=== PATIENT | female | born 1995 | race Hispanic/Latino ===

== ENCOUNTER 2021-08-03 22:09 | Emergency (ER) | payer SELFPAY ==
--- OUTSIDE RECORDS SUMMARY | 2021-08-03 22:12 | XMS REPORT | Continuity of Care Document ---
:1995 Author Organization [facility] t Address [facility] access [facility]3 Mehrdad Vásquez [address] [place] [address] Care Team Providers Name Role Phone Josefa Birch Primary Care Physician Josefa Birch Attending Clinician Brooke Madrid Attending Clinician Unavailable Brooke Madrid Admitting Clinician Unavailable Payers Payer Name Policy Type Policy Number Effective Date Expiration Date S ource Problems Condition Condition Condition Status Onset Resolution Last Treating Co mments Source Name Details Category Date Date Treatment Clinician Date Class 1 Class 1 Disease Active Univers obesity obesity 3-15 ity of due to due to 00:00: [place] excess excess 00 Medical calories calories Branch with body with body mass index mass index (BMI) of (BMI) of 31.0 to 31.0 to 31.9 in 31.9 in adult, adult, unspecifie unspecifie d whether d whether serious serious comorbidit comorbidit y present y present Well woman Well woman Disease Active U nivers exam exam 2-26 ity of 00:00: [address] Maternal Maternal Disease Active Unive rs varicella, varicella, 2-01 it y [place] non[place]immune [place] [address] [place] [address] Branch BMI BMI Disease Active Univers 31.0-31.9, 31.0-31.9, 1-30 it y of adult adult 00:00: [address] Branch COVID-19 COVID-19 Disease Active Unive rs virus IgG virus IgG - ity of antibody antibody 00:00: [place] detected detected 00 Medica l Branch Allergies, Adverse Reactions, Alerts This patient has no known allergies or adverse reactions. Social History Social Habit Start Date Stop Date Quantity Comments Source Exposure to Not sure [facility] SARS-CoV-2 [facility] (event) Branch Alcohol intake 2021-05-30 2021-05-30 Ex-drinker [facility] 00:00:00 00:00:00 (finding) [facility] Tobacco use and 2019-11-24 2019-11-24 Never used Universit y of exposure 00:00:00 00:00:00 [facility] Sex Ass[birth year] Universit y of 00:00:00 00:00:00 [facility] Smoking Status Start Date Stop Date Source Never smoker [facility] Medications Ordered Filled Start Stop Current Ordering Indication Dosage Frequency Signature Comments Components Source Medication Medication Date Date Medication? Clinician (SIG) Name Name levonorgest 2020-06 Yes [id number] 1{tbl} Take 1 Univers rel-ethinyl 2-27 tablet by ity of estradiol 00:00: mouth [place] 0.1-20 00 daily. Medical mg-mcg per Branch tablet levonorgest 2020-06 Yes [id number] 1{tbl} Take 1 Univers rel-ethinyl 2-27 tablet by ity of estradiol 00:00: mouth [place] 0.1-20 00 daily. Medical mg-mcg per Branch tablet Immunizations Ordered Filled Immunization Date Status Comments Sour e Immunization Name Name TDAP 2020-04-21 Completed [facility] 00:00:00 [facility] TDAP 2020-04-21 Completed [facility] 00:00:00 [facility] Influenza Virus 2020-02-17 Completed Universit y of Vaccine Quad .5 mL 00:00:00 [facility] IM 6+ [place] Branch Influenza Virus 2020-02-17 Completed Universit y of Vaccine [place] .5 mL 00:00:00 [facility] IM 6+ [place] Vital Signs Vital Name Observation Time Observation Value Comments Source Systolic blood 2021-05-30 15:41:00 113 mm[Hg] Univer sity of pressure [facility] Diastolic blood 2021-05-30 15:41:00 66 mm[Hg] Unive rsity of pressure [facility] Heart rate 2021-05-30 15:41:00 61 /min [facility] Body temperature 2021-05-30 15:41:00 37 Bernice [facility] Respiratory rate 2021-05-30 15:41:00 16 /min [facility] Body height 2021-05-30 15:41:00 175.3 cm [facility] Body weight 2021-05-30 15:41:00 94.983 kg [facility] BMI 2021-05-30 15:41:00 30.92 kg/m2 [facility] Procedures Procedure Date / Time Performed Performing Clinician Sourc e POCT TEST 2021-05-30 15:43:00 Sandra [facility] Encounters Start End Encounter Admission Attending Care Care Encounter Source Date/Time Date/Time Type Type Clinicians Facility Department ID 2021-05-30 2021-05-30 Office KEYLA Ladd [id number] [facility] 09:00:00 10:02:09 Visit Sandra 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 [id number] it y of REGIONAL [id number] Wei as MATERNAL [id number] Med ical & CHILD [address] [place] [address] Results Test Description Test Time Test Comments Results Result Comments Source POCT TEST 2021-05-30 15:43:00 Test Item Value Reference Range Interpretation Comme nts POCT PREG (test code = 1605) Negative On board controls acceptable with C Line (test code = 3574) Yes POCT PREG LOT # (test code = 3575) POCT PREG TEST DATE (test code = 3576) [id number] 15:43:00 Test Item Value Reference Range Interpretation Comments POCT PREG (test code = 1605) Negative On board controls acceptable with C Yes Line (test code = 3574) POCT PREG LOT # (test code = 3575) POCT PREG TEST DATE (test code = 3576) [facility]00 Test Item Value Reference Range Interpretation Comments Immunology (test code = RPR) NONREACTIVE NONREACTIVE N Chemistry - [id number] 06:38:00 Test Item Value Reference Range Interpretation Comments Chemistry - Specials (test Non-Reactive S/CO NonReactive N code = THBSAG) Blood Type Rh (Mom No Chg)2016-09-12 06:28:00 Test Item Value Reference Range Interpretation Comments Blood Type Rh OP N (test code = BT) Comment: (test See comment: N Maternal Type Rh code = TRHCMT) required for cord blood study. Due ann ack of a historical bloo d type, testing perform ed at replaced by [facility]. [id number] 06:08:00 Test Item Value Reference Range Interpretation Comments Hematology (test code = WBCT) 10.5 thou/uL 4.8-10.8 N Hematology (test code = RBCT) 4.00 mill/uL 4.00-5.20 N Hematology (test code = HGBT) 12.7 g/dL 12.0-16.0 N Hematology (test code = HCTT) 36.1 % 36.0-47.0 N Hematology (test code = MCV) 90.4 fl 77.0-87.0 H Hematology (test code = MCH) 31.7 pg 25.0-35.0 N Hematology (test code = MCHC) 35.0 g/dL 32.0-36.0 N Hematology (test code = RDW) 12.4 % 11.5-14.5 N Hematology (test code = PLTT) 259 thou/uL 130-400 N Hematology (test code = MPV) 7.7 fL 7.4-10.4 N
[2021-08-03] MEDS ORDERED: IBUPROFEN 400 MG TAB ONE (22:56)
[2021-08-03 23:00] LABS: Absolute Lymphocytes (CBC) 0.6 K/uL (0.7-4.9); Hematocrit 38.2 % (36.0-45.0); Lymphocytes % 9.7 % (15.3-44.8); MPV 8.2 fL (7.6-11.3); RBC Red Blood Cell Count 4.27 M/uL (3.86-4.86)
[2021-08-03 23:01] LABS: Urine Blood Negative (Negative); Urine Glucose Negative (Negative); Urine Protein Negative (Negative); Urine Specific Gravity >=1.030 (1.005-1.030); Urine pH 5.5 (5.0-7.0)
[2021-08-03 23:03] LABS: Protime INR 1.19
[2021-08-03 23:12] LABS: ALT/SGPT 13 U/L (12-78); AST/SGOT 11 U/L (15-37); Albumin 3.7 g/dL (3.4-5.0); Alkaline Phosphatase 68 U/L (45-117); BUN Blood Urea Nitrogen 8 mg/dL (7-18); Bicarbonate 26 mmol/L (21-32); Bilirubin Total 0.3 mg/dL (0.2-1.0); Glucose Level 112 mg/dL (74-106); Magnesium 1.9 mg/dL (1.8-2.4); NT PRO-BNP 46 pg/mL (<125); Potassium 3.5 mmol/L (3.5-5.1); Protein, Total 7.5 g/dL (6.4-8.2); Sodium Level 135 mmol/L (136-145)
[2021-08-03 23:21] LABS: Bilirubin Direct < 0.1 mg/dL (0-0.2)
[2021-08-03 23:38] LABS: Barbiturates NEGATIVE (NEGATIVE); Benzodiazepines NEGATIVE (NEGATIVE); Cocaine NEGATIVE (NEGATIVE); METHAMPHETAM NEGATIVE (NEGATIVE); Methadone NEGATIVE (NEGATIVE); Opiates NEGATIVE (NEGATIVE); Phencyclidine NEGATIVE (NEGATIVE); THC Cannibis NEGATIVE (NEGATIVE)
[2021-08-04 00:11] LABS: SARS-COV-2 RT PCR NEGATIVE (NEGATIVE)
--- NOTE | 2021-08-04 00:47 | ER ---
Nurse's Notes [facility] Name: Penny Constantino Age: 25 yrs Sex: Female : 1995 Arrival Date: 08/03/2021 Time: 22:14 Bed 20 Private MD: Diagnosis: Influenza due to identified novel influenza A virus with other respiratory manifestations;Chest pain, unspecified Presentation: 08/03 22:23 Chief complaint: Patient states: started having chest pain yesterday, now today has sm5 been having a cough and fever. took tyenol and cough medicine at 3pm. Coronavirus screen: Vaccine status: Patient reports being unvaccinated. Ebola Screen: No symptoms or risks identified at this time. Initial Sepsis Screen: Does the patient meet any 2 criteria? No. Patient's initial sepsis screen is negative. Does the patient have a suspected source of infection? No. Patient's initial sepsis screen is negative. Risk Assessment: Do you want to hurt yourself or someone else? Patient reports no desire to harm self or others. Onset of symptoms was August 02, 2021. 22:23 Method Of Arrival: Ambulatory [facility] 22:23 Acuity: PIPPA 3 5 Triage Assessment: 22:25 General: Appears in no apparent distress. Behavior is cooperative. Pain: Complains of sm5 pain in chest. Neuro: No deficits noted. Level of Consciousness is awake, alert, obeys commands, Oriented to person, place, time, situation. Cardiovascular: Reports chest pain, Capillary refill < 3 seconds Patient's skin is warm and dry. Respiratory: Reports cough that is Airway is patent Trachea midline Respiratory effort is even, unlabored. 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 - Social history:: Smoking status: Patient denies any tobacco usage or history of. Screenin:25 Abuse screen: Denies threats or abuse. Denies injuries from another. Nutritional sm5 screening: No deficits noted. Tuberculosis screening: No symptoms or risk factors identified. Fall Risk None identified. Assessment: 23:03 General: Appears in no apparent distress. comfortable, Behavior is calm, cooperative. joe Pain: Denies pain. 23:06 Pain: Pain does not radiate. joe 23:06 Pain: Pain began 2-3 days ago. joe Vital Signs: 22:23 BP 122 / 70; Pulse 99; Resp 18; Temp 100.4(O); Pulse Ox 99% on R/A; Weight 90.72 kg; [facility] Height 5 ft. 8 in. (172.72 cm); 23:03 BP 134 / 94; Pulse 87; Resp 18; Temp 100.4; Pulse Ox 100% on R/A; Pain 0/10; joe 23:43 BP 110 / 68; Pulse 90; Resp 16; Temp 100.9; Pulse Ox 99% on R/A; Pain 0/10; joe 03/03 00:32 BP 115 / 67; Pulse 84; Resp 16; Temp 99.6; Pulse Ox 100% on R/A; Pain 0/10; joe 01:07 BP 118 / 60; Pulse 84; Resp 16; Temp 99.0; Pulse Ox 100% on R/A; Pain 0/10; joe 03/ 22:23 Body Mass Index 30.41 (90.72 kg, 172.72 cm) [facility] ED Course: 08/03 22:14 Patient arrived in ED. wm 22:18 Anali Ambriz, RN is Primary Nurse. joe 22:23 Marcio Smalls PA is PHCP. cp 22:23 Eddie Kim MD is Attending Physician. cp 22:24 Triage completed. [facility] 22:25 Arm band placed on right wrist. EKG completed in triage. Results shown to MD. [facility] 22:41 Basic Metabolic Panel Sent. joe 22:41 CBC with Automated Diff Sent. joe 22:41 COVID-19/FLU A+B (Document "Date of Onset" if Symptomatic) Sent. joe 22:41 Basic Metabolic Panel Sent. joe 22:41 CBC with Diff Sent. joe 22:42 Troponin HS Sent. joe 22:42 PT-INR Sent. joe 22:42 NT PRO-BNP Sent. joe 22:42 Magnesium Sent. joe 22:42 LFT's Sent. joe 22:51 COVID-19/FLU A+B (Document "Date of Onset" if Symptomatic) Sent. joe 22:51 CBC with Automated Diff Sent. joe 22:51 Basic Metabolic Panel Sent. joe 22:51 D-Dimer Sent. joe 22:52 XRAY Chest (1 view) Sent. joe 22:57 XRAY Chest (1 view) In Process Unspecified. EDMS 23:02 Urine Dipstick-Ancillary Sent. joe 23:02 UDS Sent. joe 23:03 Troponin HS Sent. joe 23:03 PT-INR Sent. joe 23:03 NT PRO-BNP Sent. joe 23:03 Magnesium Sent. joe 23:03 LFT's Sent. joe 23:04 Patient has correct armband on for positive identification. Placed in gown. Bed in low jeo position. Call light in reach. Side rails up X 1. environmental monitoring technician on. Pulse ox on. NIBP on. Lights dimmed. Warm blanket given. Verbal reassurance given. 23:05 No provider procedures requiring assistance completed. Inserted saline lock: 20 gauge joe in right antecubital area, using aseptic technique. Blood collected. 23:06 Patient maintains SpO2 saturation greater than 95% on room air. joe 03/ 01:08 intact, bleeding controlled, No redness/swelling at site. Pressure dressing applied. joe Administered Medications: 08/03 23:00 Drug: Ibuprofen 800 mg Route: PO; joe 23:41 Follow up: Response: No adverse reaction; Temperature is decreased joe 23:02 CANCELLED (Provider dc'dd): Acetaminophen 1000 mg PO once joe 08/04 00:50 Drug: Tamiflu (oseltamivir) 75 mg Route: PO; joe 00:56 Follow up: Response: No adverse reaction joe Outcome: 08/03 23:06 Condition: stable joe 08/04 00:46 Discharge ordered by . cp 01:08 Discharged to home ambulatory. joe 01:08 Discharge instructions given to patient, Instructed on discharge instructions, follow up and referral plans. medication usage, Demonstrated understanding of instructions, follow-up care, medications, Prescriptions given X 4. 01:09 Patient left the ED. joe Signatures: Dispatcher [employer] EDMS Marcio Smalsl PA PA cp Marsh, Wendy wm Mazur, Sarah, RN RN 5 Anali Ambriz RN RN joe Corrections: (The following items were deleted from the chart) 03 22:50 22:41 D-DIMER+COAG.LAB.BRZ drawn and sent. joe EDMS
--- NOTE | 2021-08-04 00:47 | EDPHYS ---
Physician Documentation [facility] Name: Penny Constantino Age: 25 yrs Sex: Female : 1995 Arrival Date: 08/03/2021 Time: 22:14 Bed 20 Private MD: ED Physician Eddie Kim HPI: 08/03 22:33 This 25 yrs old Female presents to ER via Ambulatory with complaints of Fever, cp Chest Tightness. 22:33 The patient reports fever, with an emergency department temperature of 100.4 degrees cp Fahrenheit. 22:33 Onset: The symptoms/episode began/occurred today. cp 22:33 Associated signs and symptoms: Pertinent positives: chest pain, cough, body aches. cp Severity of symptoms: in the emergency department the symptoms are unchanged despite home interventions. 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 - Social history:: Smoking status: Patient denies any tobacco usage or history of. ROS: 22:35 Constitutional: Positive for body aches, fever, Negative for poor PO intake. cp 22:35 Eyes: Negative for injury, pain, redness, and discharge. cp 22:35 ENT: Negative for drainage from ear(s), ear pain, sore throat, difficulty swallowing, difficulty handling secretions. 22:35 Cardiovascular: Positive for chest pain. 22:35 Respiratory: Positive for cough, with no reported sputum, shortness of breath. 22:35 Abdomen/GI: Negative for abdominal pain, vomiting, diarrhea, constipation. 22:35 Back: Negative for radiated pain. 22:35 : Negative for urinary symptoms. Exam: 22:30 ECG was reviewed by the Attending Physician. cp 22:45 Constitutional: The patient appears in no acute distress, alert, awake, cp non-diaphoretic, non-toxic, well developed, well nourished, uncomfortable. 22:45 Head/Face: Normocephalic, atraumatic. cp 22:45 Eyes: Periorbital structures: appear normal, Conjunctiva: normal, no exudate, no injection, Sclera: no appreciated abnormality, Lids and lashes: appear normal, bilaterally. 22:45 ENT: External ear(s): are unremarkable, Ear canal(s): are normal, TM's: dullness, bilaterally, Nose: is normal, Mouth: Lips: moist, Oral mucosa: moist, Posterior pharynx: Airway: normal, no evidence of obstruction, Tonsils: no enlargement, no exudate, erythema, that is mild, exudate, is not appreciated. 22:45 Neck: Lymph nodes: no appreciated lymphadenopathy. 22:45 Chest/axilla: Inspection: 22:45 Cardiovascular: Rate: tachycardic, Rhythm: regular, Edema: is not appreciated, JVD: is not appreciated. 22:45 Respiratory: the patient does not display signs of respiratory distress, Respirations: labored breathing, is not present, intercostal retractions, are absent, shallow respirations, that is mild, Breath sounds: decreased breath sounds, are not appreciated, stridor, is not appreciated, wheezing: is not appreciated. 22:45 Abdomen/GI: Inspection: abdomen appears normal, Palpation: abdomen is soft and non-tender, in all quadrants. 22:45 Neuro: Orientation: to person, place \\T\\ time. Mentation: is normal, Motor: moves all fours, strength is normal, Sensation: is normal. Vital Signs: 22:23 BP 122 / 70; Pulse 99; Resp 18; Temp 100.4(O); Pulse Ox 99% on R/A; Weight 90.72 kg; sm5 Height 5 ft. 8 in. (172.72 cm); 23:03 BP 134 / 94; Pulse 87; Resp 18; Temp 100.4; Pulse Ox 100% on R/A; Pain 0/10; joe 23:43 BP 110 / 68; Pulse 90; Resp 16; Temp 100.9; Pulse Ox 99% on R/A; Pain 0/10; joe 03/03 00:32 BP 115 / 67; Pulse 84; Resp 16; Temp 99.6; Pulse Ox 100% on R/A; Pain 0/10; joe 01:07 BP 118 / 60; Pulse 84; Resp 16; Temp 99.0; Pulse Ox 100% on R/A; Pain 0/10; joe 08/03 22:23 Body Mass Index 30.41 (90.72 kg, 172.72 cm) sm5 MDM: 08/03 22:25 Patient medically screened. cp 23:00 Differential diagnosis: viral Infection, bacterial infection, bronchitis, pneumonia. cp 08/04 00:45 Data reviewed: vital signs, nurses notes, lab test result(s), EKG, radiologic studies, cp plain films. 00:45 Test interpretation: by ED physician or midlevel provider: ECG, plain radiologic cp studies. Counseling: I had a detailed discussion with the patient and/or guardian regarding: the historical points, exam findings, and any diagnostic results supporting the discharge/admit diagnosis, lab results, radiology results, to return to the emergency department if symptoms worsen or persist or if there are any questions or concerns that arise at home. ED course: VSS. Patient appears non-toxic and no signs of respiratory distress. Will discharge to home for continued monitoring. 08/03 22:30 Order name: Basic Metabolic Panel cp 08/03 22:30 Order name: CBC with Diff cp 08/03 22:30 Order name: LFT's; Complete Time: 00:01 cp 08/04 00:01 Interpretation: Normal except: AST 11; GLOB 3.8; A/G 1.0. cp 08/03 22:30 Order name: Magnesium; Complete Time: 00:01 cp 08/03 22:30 Order name: NT PRO-BNP; Complete Time: 00:01 cp 08/03 22:30 Order name: PT-INR; Complete Time: 00:01 cp 08/04 00:02 Interpretation: Abnormal: PT 13.7. cp 08/03 22:30 Order name: Troponin HS; Complete Time: 00:01 cp 08/04 00:03 Interpretation: Reviewed. cp 08/03 22:30 Order name: UDS; Complete Time: 00:01 cp 08/03 22:30 Order name: COVID-19/FLU A+B (Document "Date of Onset" if Symptomatic); Complete Time: cp 00:41 08/03 22:31 Order name: Basic Metabolic Panel; Complete Time: 00:01 EDMS 08/04 00:01 Interpretation: Normal except: NA 135; GLUC 112; GFR 83. cp 08/03 22:31 Order name: CBC with Automated Diff; Complete Time: 00:01 EDMS 08/04 00:02 Interpretation: Normal except: CATE% 80.8; LYM% 9.7; LYMA 0.6. cp 08/03 22:49 Order name: D-Dimer; Complete Time: 00:01 EDMS 08/03 23:01 Order name: Urine Dipstick-Ancillary; Complete Time: 00:01 EDMS 08/04 00:02 Interpretation: Normal except: UKET 2+; UESTR Trace. cp 08/03 22:30 Order name: XRAY Chest (1 view) cp 08/03 22:30 Order name: EKG; Complete Time: 22:31 cp 08/03 22:30 Order name: Cardiac monitoring; Complete Time: 22:52 cp 08/03 22:30 Order name: EKG - Nurse/Tech; Complete Time: 22:42 cp 08/03 22:30 Order name: IV Saline Lock; Complete Time: 22:42 cp 08/03 22:30 Order name: Labs collected and sent; Complete Time: 22:42 cp 08/03 22:30 Order name: O2 Per Protocol; Complete Time: 22:42 cp 08/03 22:30 Order name: O2 Sat Monitoring; Complete Time: 22:42 cp 08/03 22:30 Order name: Urine Dipstick-Ancillary (obtain specimen); Complete Time: 23:02 cp 08/03 22:30 Order name: Urine Test (obtain specimen); Complete Time: 23:02 cp 08/03 23:04 Order name: Urine --Ancillary (enter results); Complete Time: 00:41 cs9 EC/02 22:30 Rate is 89 beats/min. Rhythm is regular. WV interval is normal. QRS interval is normal. cp QT interval is normal. T waves are Inverted in leads III, aVF. Interpreted by me. Reviewed by me. Administered Medications: 23:00 Drug: Ibuprofen 800 mg Route: PO; joe 23:41 Follow up: Response: No adverse reaction; Temperature is decreased joe 23:02 CANCELLED (Provider dc'dd): Acetaminophen 1000 mg PO once joe 08/04 00:50 Drug: Tamiflu (oseltamivir) 75 mg Route: PO; joe 00:56 Follow up: Response: No adverse reaction joe Disposition: 06:05 Co-signature as Attending Physician, Eddie Kim MD I agree with the assessment and rn plan of care. Attestation: The patient's history, exam findings, diagnostics, and a summary of any interventions or procedures was reviewed in detail with Marcio UNDERWOOD. Disposition Summary: 08/04/21 00:46 Discharge Ordered Location: Home cp Problem: new cp Symptoms: have improved cp Condition: Stable cp Diagnosis - Influenza due to identified novel influenza A virus with other respiratory cp manifestations - Chest pain, unspecified cp Followup: cp - With: Private Physician - When: 2 - 3 days - Reason: Recheck today's complaints Discharge Instructions: - Discharge Summary Sheet cp - Nonspecific Chest Pain, Adult cp - Influenza, Adult cp - Aspirin and Your Heart cp Forms: - Medication Reconciliation Form cp - Thank You Letter cp - Antibiotic Education cp - Prescription Opioid Use cp Prescriptions: - Bromfed DM 2-30-10 mg/5 mL Oral syrup - take 10 milliliter by ORAL route every 6 hours; 180 milliliter; Refills: 0, cp Product Selection Permitted - albuterol sulfate 90 mcg/actuation Inhalation HFA aerosol inhaler - inhale 1 puff by INHALATION route every 4-6 hours; 1 Inhaler; Refills: 0, cp Product Selection Permitted - Ibuprofen 800 mg Oral Tablet - take 1 tablet by ORAL route every 8 hours As needed take with food; 30 tablet; cp Refills: 0, Product Selection Permitted - Tamiflu 75 mg Oral Capsule - take 1 capsule by ORAL route every 12 hours for 5 days; 10 capsule; Refills: 0, cp Product Selection Permitted Signatures: Dispatcher [employer] EDEddie Reaves MD MD rn Page, Corey, PA PA cp Ele Yanes RN RN sm5 Anali Ambriz RN RN joe Corrections: (The following items were deleted from the chart) 08/03 22:50 22:31 D-DIMER+COAG.LAB.BRZ ordered. EDMS EDMS 23:02 22:30 Acetaminophen 1000 mg PO once ordered. cp joe
[2021-08-04] MEDS ORDERED: OSELTAMIVIR 75 MG CAP ONE (00:49)
[2021-08-04 03:09] VITALS: O2SAT 100
[2021-08-04 03:10] VITALS: BP 118/60; TEMP 99
--- NOTE | 2021-08-04 08:36 | RAD REPORT ---
EXAM DESCRIPTION: RAD - Chest Single View - 08/03/2021 10:57 pm CLINICAL HISTORY: CHEST PAIN Chest pain. COMPARISON: No comparisons FINDINGS: Portable technique limits examination quality. Subtle interstitial prominence bilaterally could indicate viral infection or asthma. The heart is nor mal in size. No displaced fractures.
== END 2021-08-04 01:09 | disposition home or self-care (01) ==
LOC: ER 22:09
DX: J10.1 Influenza due to other identified influenza virus with other respiratory manifestations (principal); R07.9 Chest pain, unspecified; Z20.822 Contact with and (suspected) exposure to COVID-19
CPT/HCPCS: 0240U; 36415; 71045; 80048; 80076; 80307; 81003; 81025; 83735; 83880; 84484; 85025; 85379; 85610; 93005; 99285

== ENCOUNTER 2022-12-05 16:49 | Emergency (ER) | payer OTHER, SELFPAY ==
--- OUTSIDE RECORDS SUMMARY | 2022-12-05 16:54 | XMS REPORT | Continuity of Care Document ---
:1995 Author Organization [facility] t Address [address] [place] [address] [place] [id number] Care Team Providers Name Role Phone Stephy Arshad Primary Care Physician [phone] ARCHIE BAILEY Attending Clinician Unavailable ANALI LAYTON Attending Clinician Unavailable , [facility] Room Attending Clinician Unavailable Jabari Kelley MD Attending Clinician JABARI KELLEY Attending Clinician Unavailable Stephy Arshad Attending Clinician [phone] Anali Layton CNM Attending Clinician STEPHY WASHINGTON Attending Clinician Unavailable Sheng Jensen MD Attending Clinician SHENG JENSEN Attending Clinician Unavailable Lab, [facility] Attending Clinician Unavailable Doctor Unassigned, [place] Attending Clinician Unavailable TIM NAPOLES Attending Clinician Unavailable SANDRA WERNER Attending Clinician Unavailable Sandra Birch Attending Clinician Rell Mehta DO Attending Clinician Coretta Leija Attending Clinician Tim Eli Attending Clinician Chao MD, Rosalio Attending Clinician Prema Lerma MD Attending Clinician PREMA LERMA Attending Clinician Unavailable Lab/Pedi, [facility] Attending Clinician Unavailable Mihaela VILLANUEVA, Minerva Bae Attending Clinician Ultrasound, [facility] Attending Clinician Unavailable Vance Fernandez MD, Cari Attending Clinician [phone] NILTON CHEN Attending Clinician Unavailable Leif Madrid Attending Clinician Unavailable Warren BRAND, Jabari Murphy Admitting Clinician Prema Lerma MD Admitting Clinician PREMA LERMA Admitting Clinician Unavailable Leif Madrid Admitting Clinician Unavailable Payers Payer Name Policy Type Policy Number Effective Date Expiration Date S konstantin [employer] MOM [id number] 2019 CHIP KENDRICK LOW FPL 00:00:00 [facility] MOM CHIP KENDRICK [id number] 2022 LOW FPL 00:00:00 [facility] [id number] 2022 2022 [place]ICE [place] STAR 00:00:00 00:00:00 TMHP [id number] 2020 2020 EMERGENCY MEDICAID 00:00:00 00:00:00 Problems Condition Condition Condition Status Onset Resolution Last Treating Co mments Source Name Details Category Date Date Treatment Clinician Date Susceptibl Susceptibl Disease Active Overview : Univers e to e to 3-17 Formattin ity of varicella varicella 00:00: [place] of [place] (non-immun (non-immun 00 note Me dical e), e), might be Branch currently currently different from the original. Address pp Supervisio Supervisio Disease Active U nivers n of n of 2-23 ity of high[place] [facility] Multiparit Multiparit Disease Active U nivers y y 2-23 ity of 00:00: [address] Obesity in Obesity in Disease Active U nivers 3-15 ity of 00:00: [address] Well woman Well woman Disease Active 2021-0 U nivers exam exam 2-26 ity of 00:00: [place] [address] [facility] Maternal Maternal Disease Active Unive rs varicella, varicella, 2-01 it y of non-immune non-immune 00:00[place] [address] [facility] BMI BMI Disease Active Univers 31.0-31.9, 31.0-31.9, 1-30 it y of adult adult 00:00: [place] [address] [facility] COVID-19 COVID-19 Disease Active Unive rs virus IgG virus IgG 1-06 ity of antibody antibody 00:00: [place] detected detected 00 Medica l Branch Allergies, Adverse Reactions, Alerts Allergy Allergy Status Severity Reaction(s) Onset Inactive Treating Comm ents Source Name Type Date Date Clinician NO KNOWN Drug Active Univers ALLERGIE Class ity of S [facility] Social History Social Habit Start Date Stop Date Quantity Comments Source ASSERTION 2022-05-18 [facility] 00:00:00 [facility] Alcohol intake 2022-11-30 2022-11-30 Ex-drinker [facility] 00:00:00 00:00:00 (finding) [facility] Exposure to 2022-10-15 2022-10-25 Not sure [facility] SARS-CoV-2 00:00:00 10:29:00 [facility] (event) Rudy Tobacco use and 2022-07-27 2022-07-27 Smokeless tobacco Un iversity of exposure 00:00:00 00:00:00 non-user [facility] Sex Assigned At [birth year] Universit y of 00:00:00 00:00:00 [facility] Smoking Status Start Date Stop Date Source Never smoked tobacco [facility] Medications Ordered Filled Start Stop Current Ordering Indication Dosage Frequency Signature Comments Components Source Medication Medication Date Date Medication? Clinician (SIG) Name Name PNV Yes [id number] 3{tbl} Take 3 Unive rs 112-iron-FA 3-23 tablets by it y of -om-3s-dha- [place]:00: [place] the Medical (VITAFOL morning. Branch GUMMIES) 3.33 mg iron- 0.33 mg Chew PNV Yes [id number] 3{tbl} Take 3 Unive rs 112-iron-FA 3-23 tablets by it y of -om-3s-dha- [place] the Medical (VITAFOL morning. Branch GUMMIES) 3.33 mg iron- 0.33 mg Chew PNV 2023-0 Yes [id number] 3{tbl} Take 3 Unive rs 112-iron-FA 3-23 tablets by it y of -om-3s-dha- [place] the Medical (VITAFOL morning. Branch GUMMIES) 3.33 mg iron- 0.33 mg Chew PNV 2023-0 Yes [id number] 3{tbl} Take 3 Unive rs 112-iron-FA 3-23 tablets by it y of -om-3s-dha- 00:00: [place] the Medical (VITAFOL morning. Branch GUMMIES) 3.33 mg iron- 0.33 mg Chew PNV 2023-0 Yes [id number] 3{tbl} Take 3 Unive rs 112-iron-FA 3-23 tablets by it y of -om-3s-dha- 00:00: [place] the Medical (VITAFOL morning. Branch GUMMIES) 3.33 mg iron- 0.33 mg Chew PNV 2023-0 Yes [id number] 3{tbl} Take 3 Unive rs 112-iron-FA 3-23 tablets by it y of -om-3s-dha- 00:00: [place] the Medical (VITAFOL morning. Branch GUMMIES) 3.33 mg iron- 0.33 mg Chew PNV 2023-0 Yes [id number] 3{tbl} Take 3 Unive rs 112-iron-FA 3-23 tablets by it y of -om-3s-dha- 00:00: [place] the Medical (VITAFOL morning. Branch GUMMIES) 3.33 mg iron- 0.33 mg Chew PNV 2023-0 Yes [id number] 3{tbl} Take 3 Unive rs 112-iron-FA 3-23 tablets by it y of -om-3s-dha- 00:00: [place] the Medical (VITAFOL morning. Branch GUMMIES) 3.33 mg iron- 0.33 mg Chew PNV 2023-0 Yes [id number] 3{tbl} Take 3 Unive rs 112-iron-FA 3-23 tablets by it y of -om-3s-dha- 00:00: [place] the Medical (VITAFOL morning. Branch GUMMIES) 3.33 mg iron- 0.33 mg Chew PNV 2023-0 Yes [id number] 3{tbl} Take 3 Unive rs 112-iron-FA 3-23 tablets by it y of -om-3s-dha- 00:00: [place] the Medical (VITAFOL morning. Branch GUMMIES) 3.33 mg iron- 0.33 mg Chew PNV 3-0 Yes [id number] 3{tbl} Take 3 Unive rs 112-iron-FA 3-23 tablets by it y of -om-3s-dha- 00:00: [place] the Medical (VITAFOL morning. Branch GUMMIES) 3.33 mg iron- 0.33 mg Chew PNV 3-0 Yes [id number] 3{tbl} Take 3 Unive rs 112-iron-FA 3-23 tablets by it y of -om-3s-dha- 00:00: [place] the Medical (VITAFOL morning. Branch GUMMIES) 3.33 mg iron- 0.33 mg Chew PNV 3-0 Yes [id number] 3{tbl} Take 3 Unive rs 112-iron-FA 3-23 tablets by it y of -om-3s-dha- 00:00: [place] the Medical (VITAFOL morning. Branch GUMMIES) 3.33 mg iron- 0.33 mg Chew PNV 3-0 Yes [id number] 3{tbl} Take 3 Unive rs 112-iron-FA 3-23 tablets by it y of -om-3s-dha- 00:00: [place] the Medical (VITAFOL morning. Branch GUMMIES) 3.33 mg iron- 0.33 mg Chew levonorgest 2020-06 Yes [id number] 1{tbl} Take 1 Univers rel-ethinyl 2-27 tablet by ity of estradiol 00:00: mouth [place] 0.1-20 00 daily. Medical mg-mcg per Branch tablet levonorgest 2021-1 Yes [id number] 1{tbl} Take 1 Univers rel-ethinyl 2-27 tablet by ity of estradiol 00:00: mouth [place] 0.1-20 00 daily. Medical mg-mcg per Branch tablet levonorgest 2020-06 Yes [id number] 1{tbl} Take 1 Univers rel-ethinyl 2-27 tablet by ity of estradiol 00:00: mouth [place] 0.1-20 00 daily. Medical mg-mcg per Branch tablet levonorgest 2020-06 Yes [id number] 1{tbl} Take 1 Univers rel-ethinyl 2-27 tablet by ity of estradiol 00:00: mouth [place] 0.1-20 00 daily. Medical mg-mcg per Branch tablet levonorgest 2020-06 Yes [id number] 1{tbl} Take 1 Univers rel-ethinyl 2-27 tablet by ity of estradiol 00:00: mouth [place] 0.1-20 00 daily. Medical mg-mcg per Branch tablet levonorgest 2020-06 Yes [id number] 1{tbl} Take 1 Univers rel-ethinyl 2-27 tablet by ity of estradiol 00:00: mouth [place] 0.1-20 00 daily. Medical mg-mcg per Branch tablet levonorgest 2020-06 Yes [id number] 1{tbl} Take 1 Univers rel-ethinyl 2-27 tablet by ity of estradiol 00:00: mouth [place] 0.1-20 00 daily. Medical mg-mcg per Branch tablet levonorgest 2020-06 Yes [id number] 1{tbl} Take 1 Univers rel-ethinyl 2-27 tablet by ity of estradiol 00:00: mouth [place] 0.1-20 00 daily. Medical mg-mcg per Branch tablet levonorgest 2020-06 Yes [id number] 1{tbl} Take 1 Univers rel-ethinyl 2-27 tablet by ity of estradiol 00:00: mouth [place] 0.1-20 00 daily. Medical mg-mcg per Branch tablet levonorgest 2020-06 Yes [id number] 1{tbl} Take 1 Univers rel-ethinyl 2-27 tablet by ity of estradiol 00:00: mouth [place] 0.1-20 00 daily. Medical mg-mcg per Branch tablet levonorgest 2020-06- No [id number] 1{tbl} Take 1 Univers rel-ethinyl 209-27 tablet by it y of estradiol 00:00: 00:00 mouth [place] 0.1-20 00 :00 daily. Medical mg-mcg per Branch tablet Immunizations Ordered Immunization Filled Immunization Date Status Commen ts Source Name Name [facility] 2022-11-30 Completed University of 00:00: [facility] TDAP 2022-11-30 Completed University of 00:00:00 [facility] TDAP 2022-11-30 Completed University of 00:00:00 [facility] TDAP 2022-11-30 Completed University of 00:00:00 [facility] TDAP 2022-11-30 Completed University of 00:00:00 [facility] TDAP 2020-04-21 Completed University of 00:00:00 [facility] TDAP 2020-04-21 Completed University of 00:00:00 [facility] TDAP 2020-04-21 Completed University of 00:00:00 [facility] TDAP 2020-04-21 Completed University of 00:00:00 [facility] TDAP 2020-04-21 Completed University of 00:00:00 [facility] TDAP 2020-04-21 Completed University of 00:00:00 [facility] TDAP 2020-04-21 Completed University of 00:00:00 [facility] TDAP 2020-04-21 Completed University of 00:00:00 [facility] TDAP 2020-04-21 Completed University of 00:00:00 [facility] TDAP 2020-04-21 Completed University of 00:00:00 [facility] TDAP 2020-04-21 Completed University of 00:00:00 [facility] TDAP 2020-04-21 Completed University of 00:00:00 [facility] TDAP 2020-04-21 Completed University of 00:00:00 [facility] TDAP 2020-04-21 Completed University of 00:00:00 [facility] TDAP 2020-04-21 Completed University of 00:00:00 [facility] TDAP 2020-04-21 Completed University of 00:00:00 [facility] TDAP 2020-04-21 Completed University of 00:00:00 [facility] TDAP 2020-04-21 Completed University of 00:00:00 [facility] TDAP 2020-04-21 Completed University of 00:00:00 [place] [facility] TDAP 2020-04-21 Completed University of 00:00:00 [facility] Branch Influenza Virus 2020-02-17 Completed Universit y of Vaccine Quad .5 mL IM 00:00:00 [facility] 6+ MO Branch Influenza Virus 2020-02-17 Completed Universit y of Vaccine Quad .5 mL IM 00:00:00 [facility] 6[facility] [place] Branch Influenza Virus 2020-02-17 Completed Universit y of Vaccine Quad .5 mL IM 00:00:00 [facility] 6+ [place] Branch Influenza Virus 2020-02-17 Completed Universit y of Vaccine Quad .5 mL IM 00:00:00 [facility] 6[facility] [place] Branch Influenza Virus 2020-02-17 Completed Universit y of Vaccine Quad .5 mL IM 00:00:00 [facility] 6[facility] [place] Branch Influenza Virus 2020-02-17 Completed Universit y of Vaccine Quad .5 mL IM 00:00:00 [facility] 6[facility] [place] Branch Influenza Virus 2020-02-17 Completed Universit y of Vaccine Quad .5 mL IM 00:00:00 [facility] 6[facility] [place] Branch Influenza Virus 2020-02-17 Completed Universit y of Vaccine Quad .5 mL IM 00:00:00 [facility] 6[facility] [place] Branch Influenza Virus 2020-02-17 Completed Universit y of Vaccine Quad .5 mL IM 00:00:00 [facility] 6[facility] [place] Branch Influenza Virus 2020-02-17 Completed Universit y of Vaccine Quad .5 mL IM 00:00:00 [facility] 6[facility] [place] Branch Influenza Virus 2020-02-17 Completed Universit y of Vaccine Quad .5 mL IM 00:00:00 [facility] 6[facility] [place] Branch Influenza Virus 2020-02-17 Completed Universit y of Vaccine Quad .5 mL IM 00:00:00 [facility] 6[facility] [place] Branch Influenza Virus 2020-02-17 Completed Universit y of Vaccine Quad .5 mL IM 00:00:00 [facility] 6[facility] [place] Branch Influenza Virus 2020-02-17 Completed Universit y of Vaccine Quad .5 mL IM 00:00:00 [facility] 6[facility] [place] Branch Influenza Virus 2020-02-17 Completed Universit y of Vaccine Quad .5 mL IM 00:00:00 [facility] 6[facility] [place] Branch Influenza Virus 2020-02-17 Completed Universit y of Vaccine Quad .5 mL IM 00:00:00 [facility] 6[facility] [place] Branch Influenza Virus 2020-02-17 Completed Universit y of Vaccine Quad .5 mL IM 00:00:00 [facility] 6[facility] Branch Influenza Virus 2020-02-17 Completed Universit y of Vaccine Quad .5 mL IM 00:00:00 [facility] 6[facility] MO Branch Influenza Virus 2020-02-17 Completed Universit y of Vaccine Quad .5 mL IM 00:00:00 [facility] 6[facility] MO Branch Influenza Virus 2020-02-17 Completed Universit y of Vaccine Quad .5 mL IM 00:00:00 [facility] 6[facility] Branch HEPATITIS A 2011-12-07 Completed University of 00:00:00 [facility] HEPATITIS A 2011-12-07 Completed University of 00:00:00 [facility] HEPATITIS A 2011-12-07 Completed University of 00:00:00 [facility] HEPATITIS A 2011-12-07 Completed University of 00:00:00 [facility] HEPATITIS A 2011-12-07 Completed University of 00:00:00 [facility] TDAP 2009-12-30 Completed University of 00:00:00 [facility] Varicella 2009-12-30 Completed University of (varivax)(chicken 00:00:00 [place] [facility] pox) Branch HEPATITIS A 2009-12-30 Completed University of 00:00:00 [facility] Meningococcal 2009-12-30 Completed University of Polysaccharide 00:00:00 [place] [facility] (groups A, C, Y and Branc h W-135) conjugate vaccine (MCV4P) TDAP 2009-12-30 Completed University of 00:00:00 [facility] Varicella 2009-12-30 Completed University of (varivax)(chicken 00:00:00 [place] [facility] pox) Branch HEPATITIS A 2009-12-30 Completed University of 00:00:00 [facility] Meningococcal 2009-12-30 Completed University of Polysaccharide 00:00:00 [place] [facility] darcy (groups A, C, Y and Branc h W-135) conjugate vaccine (MCV4P) TDAP 2009-12-30 Completed University of 00:00:00 [facility] Varicella 2009-12-30 Completed University of (varivax)(chicken 00:00:00 [place] [facility] pox) Branch HEPATITIS A 2009-12-30 Completed University of 00:00:00 [facility] Meningococcal 2009-12-30 Completed University of Polysaccharide 00:00:00 [facility] darcy (groups A, C, Y and Branc h W-135) conjugate vaccine (MCV4P) TDAP 2009-12-30 Completed University of 00:00:00 [facility] Varicella 2009-12-30 Completed University of (varivax)(chicken 00:00:00 [place] [facility] pox) Branch HEPATITIS A 2009-12-30 Completed University of 00:00:00 [facility] Meningococcal 2009-12-30 Completed University of Polysaccharide 00:00:00 [facility] darcy (groups A, C, Y and Branc h W-135) conjugate vaccine (MCV4P) TDAP 2009-12-30 Completed University of 00:00:00 [facility] Varicella 2009-12-30 Completed University of (varivax)(chicken 00:00:00 [place] M edical pox) Branch HEPATITIS A 2009-12-30 Completed University of 00:00:00 [facility] Meningococcal 2009-12-30 Completed University of Polysaccharide 00:00:00 [facility] darcy (groups A, C, Y and Branc h W-135) conjugate vaccine (MCV4P) Hep B, Adol or Pedi 2001-05-06 Completed Unive rsity of Dosage 00:00:00 [facility] Hep B, Adol or Pedi 2001-05-06 Completed Unive rsity of Dosage 00:00:00 [facility] Hep B, Adol or Pedi 2001-05-06 Completed Unive rsity of Dosage 00:00:00 [facility] Hep B, Adol or Pedi 2001-05-06 Completed Unive rsity of Dosage 00:00:00 [facility] Hep B, Adol or Pedi 2001-05-06 Completed Unive rsity of Dosage 00:00:00 [facility] MMR 2000-12-18 Completed University of 00:00:00 [facility] IPV 2000-12-18 Completed University of 00:00:00 [facility] DTaP, Unspecified 2000-12-18 Completed Univers ity of Formulation 00:00:00 [facility] Hep B, Adol or Pedi 2000-12-18 Completed Unive rsity of Dosage 00:00:00 [facility] HIB 4 Dose Schedule 2000-12-18 Completed Unive rsity of 00:00:00 [facility] MMR 2000-12-18 Completed University of 00:00:00 [facility] IPV 2000-12-18 Completed University of 00:00:00 [facility] Branch DTaP, Unspecified 2000-12-18 Completed Univers ity of Formulation 00:00:00 [facility] Branch Hep B, Adol or Pedi 2000-12-18 Completed Unive rsity of Dosage 00:00:00 [facility] HIB 4 Dose Schedule 2000-12-18 Completed Unive rsity of 00:00:00 [facility] Branch MMR 2000-12-18 Completed University of 00:00:00 [facility] Branch IPV 2000-12-18 Completed University of 00:00:00 [facility] Branch DTaP, Unspecified 2000-12-18 Completed Univers ity of Formulation 00:00:00 [facility] Branch Hep B, Adol or Pedi 2000-12-18 Completed Unive rsity of Dosage 00:00:00 [facility] HIB 4 Dose Schedule 2000-12-18 Completed Unive rsity of 00:00:00 [facility] MMR 2000-12-18 Completed University of 00:00:00 [facility] IPV 2000-12-18 Completed University of 00:00:00 [facility] DTaP, Unspecified 2000-12-18 Completed Univers ity of Formulation 00:00:00 [facility] Branch Hep B, Adol or Pedi 2000-12-18 Completed Unive rsity of Dosage 00:00:00 [facility] HIB 4 Dose Schedule 2000-12-18 Completed Unive rsity of 00:00:00 [facility] MMR 2000-12-18 Completed University of 00:00:00 [facility] IPV 2000-12-18 Completed University of 00:00:00 [facility] Branch DTaP, Unspecified 2000-12-18 Completed Univers ity of Formulation 00:00:00 [facility] Branch Hep B, Adol or Pedi 2000-12-18 Completed Unive rsity of Dosage 00:00:00 [facility] HIB 4 Dose Schedule 2000-12-18 Completed Unive rsity of 00:00:00 [facility] Varicella 2000-09-05 Completed University of (varivax)(chicken 00:00:00 [facility] [place] [facility] edical pox) Branch Hep B, Adol or Pedi 2000-09-05 Completed Unive rsity of Dosage 00:00:00 [facility] Varicella 2000-09-05 Completed University of (varivax)(chicken 00:00:00 [place] [facility] pox) Branch Hep B, Adol or Pedi 2000-09-05 Completed Unive rsity of Dosage 00:00:00 [facility] Varicella 2000-09-05 Completed University of (varivax)(chicken 00:00:00 [place] [facility] pox) Branch Hep B, Adol or Pedi 2000-09-05 Completed Unive rsity of Dosage 00:00:00 [facility] Varicella 2000-09-05 Completed University of (varivax)(chicken 00:00:00 [place] edical pox) Branch Hep B, Adol or Pedi 2000-09-05 Completed Unive rsity of Dosage 00:00:00 [facility] Varicella 2000-09-05 Completed University of (varivax)(chicken 00:00:00 [facility] [place] [facility] edical pox) Branch Hep B, Adol or Pedi 2000-09-05 Completed Unive rsity of Dosage 00:00:00 [facility] DTP 1998-12-21 Completed University of 00:00:00 [facility] DTP 1998-12-21 Completed University of 00:00:00 [facility] DTP 1998-12-21 Completed University of 00:00:00 [facility] DTP 1998-12-21 Completed University of 00:00:00 [facility] DTP 1998-12-21 Completed University of 00:00:00 [facility] MMR 1997 Completed University of 00:00:00 [facility] MMR 1997 Completed University of 00:00:00 [facility] MMR 1997 Completed University of 00:00:00 [facility] MMR 1997 Completed University of 00:00:00 [facility] MMR 1997 Completed University of 00:00:00 [facility] Poliovirus, Live, 1997-06-18 Completed Univers ity of Oral, Trivalent 00:00:00 [facility] DT 1997-06-18 Completed University of 00:00:00 [facility] Poliovirus, Live, 1997-06-18 Completed Univers ity of Oral, Trivalent 00:00:00 [facility] DT 1997-06-18 Completed University of 00:00:00 [facility] Poliovirus, Live, 1997-06-18 Completed Univers ity of Oral, Trivalent 00:00:00 [facility] [place] [facility] 1997-06-18 Completed University of 00:00:00 [facility] Poliovirus, Live, 1997-06-18 Completed Univers ity of Oral, Trivalent 00:00:00 [facility] [place] [facility] 1997-06-18 Completed University of 00:00:00 [facility] Poliovirus, Live, 1997-06-18 Completed Univers ity of Oral, Trivalent 00:00:00 [facility] [place] [facility] 1997-06-18 Completed University of 00:00:00 [facility] Poliovirus, Live, 1997-04-27 Completed Univers ity of Oral, Trivalent 00:00:00 [facility] [place] [facility] 1997-04-27 Completed University of 00:00:00 [facility] Poliovirus, Live, 1997-04-27 Completed Univers ity of Oral, Trivalent 00:00:00 [facility] [place] [facility] 1997-04-27 Completed University of 00:00:00 [facility] Poliovirus, Live, 1997-04-27 Completed Univers ity of Oral, Trivalent 00:00:00 [facility] [place] [facility] 1997-04-27 Completed University of 00:00:00 [facility] Poliovirus, Live, 1997-04-27 Completed Univers ity of Oral, Trivalent 00:00:00 [facility] [place] [facility] 1997-04-27 Completed University of 00:00:00 [facility] Poliovirus, Live, 1997-04-27 Completed Univers ity of Oral, Trivalent 00:00:00 [facility] [place] [facility] 1997-04-27 Completed University of 00:00:00 [facility] Poliovirus, Live, 1997-02-16 Completed Univers ity of Oral, Trivalent 00:00:00 [facility] [place] [facility] 1997-02-16 Completed University of 00:00:00 [facility] Poliovirus, Live, 1997-02-16 Completed Univers ity of Oral, Trivalent 00:00:00 [facility] [place] [facility] 1997-02-16 Completed University of 00:00:00 [facility] Poliovirus, Live, 1997-02-16 Completed Univers ity of Oral, Trivalent 00:00:00 [facility] [place] [facility] 1997-02-16 Completed University of 00:00:00 [facility] Poliovirus, Live, 1997-02-16 Completed Univers ity of Oral, Trivalent 00:00:00 [facility] [place] [facility] 1997-02-16 Completed University of 00:00:00 [facility] Poliovirus, Live, 1997-02-16 Completed Univers ity of Oral, Trivalent 00:00:00 [facility] [place] [facility] 1997-02-16 Completed University of 00:00:00 [facility] Poliovirus, Live, 1996 Completed Univers ity of Oral, Trivalent 00:00:00 [facility] Poliovirus, Live, 1996 Completed Univers ity of Oral, Trivalent 00:00:00 [facility] Poliovirus, Live, 1996 Completed Univers ity of Oral, Trivalent 00:00:00 [facility] Poliovirus, Live, 1996 Completed Univers ity of Oral, Trivalent 00:00:00 [facility] Poliovirus, Live, 1996 Completed Univers ity of Oral, [employer] 00:00:00 [facility] Vital Signs Vital Name Observation Time Observation Value Comments Source Systolic blood 2022-11-30 14:07:00 103 mm[Hg] Univer sity of pressure [facility] Diastolic blood 2022-11-30 14:07:00 66 mm[Hg] Unive rsity [facility] Heart rate 2022-11-30 14:07:00 73 /min [facility] Body temperature 2022-11-30 14:07:00 35.89 Bernice [facility] Respiratory rate 2022-11-30 14:07:00 18 /min [facility] Body height 2022-11-30 14:07:00 175.3 cm [facility] Body weight 2022-11-30 14:07:00 99.394 kg [facility] BMI 2022-11-30 14:07:00 32.36 kg/m2 [facility] Systolic blood 2022-10-25 15:30:00 95 mm[Hg] Univer sity of pressure [facility] Diastolic blood 2022-10-25 15:30:00 67 mm[Hg] Unive rsity of pressure [facility] Heart rate 2022-10-25 15:30:00 76 /min [facility] Body temperature 2022-10-25 15:30:00 36.06 Bernice [facility] Respiratory rate 2022-10-25 15:30:00 18 /min [facility] Body height 2022-10-25 15:30:00 175.3 cm [facility] Body weight 2022-10-25 15:30:00 98.204 kg [facility] BMI 2022-10-25 15:30:00 31.97 kg/m2 [facility] Systolic blood 2022-09-27 15:49:00 96 mm[Hg] Univer sity of pressure [facility] Diastolic blood 2022-09-27 15:49:00 56 mm[Hg] Unive rsity of pressure [facility] Heart rate 2022-09-27 15:49:00 58 /min [facility] Body temperature 2022-09-27 15:49:00 36.28 Bernice [facility] Respiratory rate 2022-09-27 15:49:00 18 /min [facility] Body height 2022-09-27 15:49:00 175.3 cm [facility] Body weight 2022-09-27 15:49:00 97.155 kg [facility] BMI 2022-09-27 15:49:00 31.63 kg/m2 [facility] Systolic blood 2022-08-24 13:55:00 113 mm[Hg] Univer sity of pressure [facility] Diastolic blood 2022-08-24 13:55:00 65 mm[Hg] Unive rsity of pressure [facility] Heart rate 2022-08-24 13:55:00 72 /min [facility] Body temperature 2022-08-24 13:55:00 35.83 Bernice [facility] Respiratory rate 2022-08-24 13:55:00 18 /min [facility] Body height 2022-08-24 13:55:00 175.3 cm [facility] Body weight 2022-08-24 13:55:00 96.843 kg [facility] BMI 2022-08-24 13:55:00 31.53 kg/m2 [facility] Systolic blood 2022-07-27 21:35:00 120 mm[Hg] Univer sity of [facility] Diastolic blood 2022-07-27 21:35:00 64 mm[Hg] Unive rsity of [facility] Heart rate 2022-07-27 21:35:00 68 /min [facility] Body temperature 2022-07-27 21:35:00 36.22 Bernice [facility] Respiratory rate 2022-07-27 21:35:00 18 /min [facility] Body height 2022-07-27 21:35:00 175.3 cm [facility] Body weight 2022-07-27 21:35:00 98.748 kg [facility] [place] [facility] BMI 2022-07-27 21:35:00 32.15 kg/m2 [facility] Systolic blood 2021-05-30 15:41:00 113 mm[Hg] Univer sity of [facility] Diastolic blood 2021-05-30 15:41:00 66 mm[Hg] Unive rsity of pressure [facility] Heart rate 2021-05-30 15:41:00 61 /min [facility] Body temperature 2021-05-30 15:41:00 37 Bernice [facility] Respiratory rate 2021-05-30 15:41:00 16 /min [facility] Body height 2021-05-30 15:41:00 175.3 cm [facility] Body weight 2021-05-30 15:41:00 94.983 kg [facility] BMI 2021-05-30 15:41:00 30.92 kg/m2 [facility] Procedures Procedure Date / Time Performed Performing Clinician Sourc e GLUCOSE 1 HOUR POST 2022-11-30 15:05:[address] [facility] ersity [facility] CBC WITH DIFF 2022-11-30 15:05:00 [facility]-AB WITH 2022-11-30 15:05:00 Anali Layton [facility] TDAP VACCINE, >11 YRS, 2022-11-30 14:15:39 [facility] PO[facility] URINALYSIS 2022-11-30 14:09:00 AkinStephy suarez [facility] POCT URINALYSIS 2022-10-25 15:31:00 AkinmilagrospeJassiStephy C [facility] POCT URINALYSIS 2022-09-27 15:50:00 AkinsipeJassiStephy C [facility] QUAD SCRN 2022-08-24 14:39:00 AkinsipeJassiStephy C [facility] POCT URINALYSIS 2022-08-24 13:58:00 AkinJassi suarezilola C [facility] POCT URINALYSIS W/O 2022-07-27 21:41:00 AkinJassi suarezilola C Uni [facility] [place] SPECIFIC GRAVITY [facility] POCT TEST 2022-07-27 21:39:00 AkinmilagrospeJassiStephy C Uni [facility] CONSENT/REFUSAL FOR 2022-07-27 20:15:34 Doctor Unassigned, [facility] TREATMENT POCT TEST 2021-05-30 15:43:00 Sandra Werner [facility] Encounters Start End Encounter Admission Attending Care Care Encounter Source Date/Time Date/Time Type Type Clinicians Facility Department ID 2021-04-[address] [facility] [id number] Univers 07:21:43 ity [facility] 2021-04-[address] [facility] [id number] [facility] [facility] [id number] [facility] 2023-01-02 2023-01-02 Outpatient P [facility] [id number] Univers 15:30:00 [facility] 2022-12-04 2022-12-04 Employee Relations Advisor 1, [facility] Us Room UNIVERSIT 1 .2.840.114 [id number] Univers 10:00:00 10:45:00 Visit Lissettoya Jabari [facility] 350.1.13.10 ity of [id number] [address] 2022-12-04 2022-12-04 Outpatient P WARREN [facility] [id number] Univers 10:00:00 10:00:00 JABARI still [facility] 2022-12-04 2022-12-04 [facility] 1.2.840.114 [id number] Univers 00:00:00 00:00:00 Stephy Velásquez REGULATORY ADMINISTRATOR 350.1.13.10 ity of REGIONAL 4.2.7.2.686 Wei as MATERNAL [id number] Med ical & CHILD [address] [place] [address] 2022-11-30 2022-11-30 [facility] [id number] Univers 09:15:00 09:45:23 [facility]22-11-30 2022-11-30 [facility] 1.2.840.114 [id number] Univers 09:15:00 09:45:23 Anali A REGULATORY ADMINISTRATOR 350.1.13.10 ity of Visit REGIONAL 4.2.7.2.686 Wei as MATERNAL [id number] [facility] ical & CHILD [address] [place] [address] 2022-11-17 2022-11-17 [facility] [id number] Univers 08:45:00 08:45:00 STEPHY still o f [facility] 2022-11-09 2022-11-09 Out[facility] [id number] Univers 14:30:00 14:30:00 STEPHY langey o f [facility] 2022-11-09 2022-11-[address] [facility] 1.2.840.114 [id number] Univers 00:00:00 00:00:00 Stephy C REGULATORY ADMINISTRATOR 350.1.13.10 ity of REGIONAL 4.2.7.2.686 Wei as MATERNAL [id number] [facility] & CHILD [address] [place] [address] 2022-11-08 2022-11-08 Outpatient R PADMINI [facility] [id number] Univers 15:15:00 15:15:00 STEPHY langey o f [facility] 2022-10-26 2022-10-26 Outpatient P [facility] [id number] Univers 13:00:00 13:00:00 ity [facility] 2022-10-25 2022-10-25 Out[facility] [id number] Univers 10:15:00 11:03:56 [facility]22-10-25 2022-10-25 [facility] 1.2.840.114 [id number] Univers 10:15:00 11:03:56 Anali A REGULATORY ADMINISTRATOR 350.1.13.10 ity of Visit REGIONAL 4.2.7.2.686 Wei as MATERNAL [id number] [address] 2022-10-24 2022-10-[address] [facility] [address] 1.2.840.114 [id number] Univers 00:00:00 00:00:00 Stephy C REGULATORY ADMINISTRATOR 350.1.13.10 ity of REGIONAL 4.2.7.2.686 Wei as MATERNAL [id number] [facility] & CHILD [address] [place] [address] 2022-10-23 2022-10-23 Employee Relations Advisor 1, [facility] Us Room UNIVERSIT 1 .2.840.114 [id number] Univers 11:00:00 12:00:00 Visit Sheng Jensen [facility] 350.1.13. 10 ity [id number] [address] 2022-10-23 2022-10-23 Outpatient P CAMILA [facility] [id number] Univers 11:00:00 11:00:00 [facility] 2022-10-11 2022-10-11 Outpatient [address] [facility] [id number] Univers 08:00:00 08:00:00 ity [facility] 2022-09-27 2022-09-27 Outpatient R KINJAL [facility] [id number] Univers 11:00:00 11:15:35 [facility] 2022-09-27 2022-09-[address] [facility] 1.2.840.114 [id number] Univers 11:00:00 11:15:35 Anali A REGULATORY ADMINISTRATOR 350.1.13.10 ity of Visit REGIONAL 4.2.7.2.686 Wei as MATERNAL [id number] [facility] & CHILD [address] [place] [address] 2022-09-21 2022-09-21 Outpatient R PADMINI [facility] [id number] Univers 10:45:00 10:45:00 STEPHY tessy o [facility] 2022-08-24 2022-08-24 Outpatient R PADMINI [facility] [id number] Univers 09:00:00 09:41:07 STEPHY tessy o [facility] 2022-08-24 2022-08-[address] [facility] 1.2.404.584 [id number] Univers 09:00:00 09:41:07 Stephy C REGULATORY ADMINISTRATOR 350.1.13.10 ity of Visit REGIONAL 4.2.7.2.686 Wei as MATERNAL [id number] [facility] & CHILD [address] [place] [address] 2022-08-17 2022-08-17 Outpatient [facility] [id number] Univers 08:00:00 08:23:57 [facility] 2022-08-17 2022-08-17 Employee Relations Advisor Lab, Srinivasa-Rmchp [facility] 1.2.840. 114 [id number] Univers 08:00:00 08:23:57 Visit Anali Layton REGULATORY ADMINISTRATOR 350.1.13.1 0 ity of REGIONAL 4.2.7.2.686 Wei as MATERNAL [id number] Med ical & [address] 2022-07-28 2022-07-28 Outpatient R [facility] [id number] Univers 08:00:00 08:00:00 ity of [facility] 2022-07-27 2022-07-[address] [facility] 1.2.326.284 [id number] Univers 15:00:00 16:13:34 Stephy Velásquez REGULATORY ADMINISTRATOR 350.1.13.10 ity of Visit REGIONAL 4.2.7.2.686 Wei as MATERNAL [id number] [address] 2022-07-27 2022-07-27 Outpatient [facility] [id number] Univers 14:30:00 16:04:07 STEPHY still o f [facility] 2022-07-27 2022-07-27 Orders Doctor ARCHIE 1.2.840.114 [id number] Univers 00:00:00 00:00:00 Only Unassigned, CORTEZ 350.1.13.10 ity of [place] [facility] 4.2.7.2.686 Wei as [id number] [address] 2021-08-29 2021-08-29 Outpatient R DONY [facility] [id number] Univers 09:00:00 09:00:00 TIM still o [facility] 2021-05-30 2021-05-30 Outpatient [facility] [id number] Univers 09:00:00 10:02:09 SANDRA still [facility] 2021-05-30 2021-05-[address] [facility] 1.2.592.742 [id number] Univers 09:00:00 10:02:09 Visit Sandra Rivero REGULATORY ADMINISTRATOR 350.1.13.10 it y of REGIONAL 4.2.7.2.686 Wei as MATERNAL [id number] [address] 2021-05-30 2021-05-30 Out[facility] [id number] Univers 09:00:00 09:00:00 SANDRA still [facility] 2021-05-10 2021-05-[address] [facility] 1.2.840.114 [id number] Univers 00:00:00 00:00:00 Sandra Josefa REGULATORY ADMINISTRATOR 350.1.13.10 it y [facility] 4.2.7.2.686 Wei as MATERNAL [id number] [facility] & [address] 2021-05-09 2021-05-09 Outpatient [facility] [id number] Univers 08:30:00 08:48:44 SANDRA tessy [facility] 2021-05-09 2021-05-09 Office [facility] 1.2.278.238 [id number] Univers 08:22:08 08:48:44 Visit Sandra Josefa REGULATORY ADMINISTRATOR 350.1.13.10 [facility] 4.2.7.2.686 Wei as MATERNAL [id number] [address] 2021-05-09 2021-05-09 Outpatient [facility] [id number] Univers 08:00:00 08:00:00 SANDRA still [facility] 2020-08-30 2020-08-30 Outpatient Arnold NAPOLES [facility] [id number] Univers 08:15:00 08:15:00 TIM faith [facility] 2020-08-24 2020-08-[address] [facility] 1.2.840.114 [id number] Univers 00:00:00 00:00:00 Outreach Rell [place] 350.1.13.10 i ty of [facility] [place].2.7.2.[place] [id number] Ri dical [address] 2020-08-21 2020-08-21 Emergency [place], K [facility] 1.2.840.114 [id number] Univers 17:24:00 20:40:00 Paulette Abernathy 350.1.13.10 i ty of [place] [id number] [facility] [address] 2020-08-17 2020-08-17 Outpatient Arnold [facility] [id number] Univers 13:15:00 13:15:00 SANDRA still [facility] 2020-08-16 2020-08-16 [facility] 1.2.840.114 [id number] Univers 10:47:33 11:26:17 Visit Tim R REGULATORY ADMINISTRATOR 350.1.13.10 ity of [facility] 4.2.7.2.686 Wei as MATERNAL [id number] [facility] & CHILD [address] [place] [address] 2020-08-16 2020-08-16 Outpatient [facility] [id number] Univers 10:30:00 10:30:00 TIM anisadalila o [facility] 2020-08-16 2020-08-16 Outpatient [facility] [id number] Univers 10:30:00 10:30:00 VICENTACATHYCatalino tessy o [facility] 2020-07-30 2020-07-30 Outpatient [facility] [id number] Univers 14:45:00 15:17:19 STEPHY still o [facility] 2020-07-30 2020-07-30 Routine [facility] 1.2.302.252 [id number] Univers 14:37:02 15:17:19 Stephy Velásquez REGULATORY ADMINISTRATOR 350.1.13.10 ity of Visit [facility] 4.2.7.2.686 Wei as MATERNAL [id number] [facility] & CHILD [address] [place] [address] 2020-07-07 2020-07-07 Telephone [facility] 1.2.648.651 [id number] Univers 00:00:00 00:00:00 Rosvianca R REGULATORY ADMINISTRATOR 350.1.13.10 ity of [facility] 4.2.7.2.686 Wei as MATERNAL [id number] [facility] & CHILD [address] [place] [address] 2020-07-03 2020-07-06 Hospital ARCHIE Kelley 1.2.608.355 [id number] Univers 19:26:00 12:53:00 Encounter Jabari TORO 350.1.13.10 ity of [facility] 4.2.7.2.686 Wei as [id number] [address] 2020-06-29 2020-06-29 Routine Alphonso [facility] 1.2.857.795 [id number] Univers 15:39:03 16:04:16 Sandra Rivero REGULATORY ADMINISTRATOR 350.1.13.10 i ty of Visit [facility] 4.2.7.2.686 Wei as MATERNAL [id number] [facility] & [address] 2020-06-29 2020-06-29 Outpatient R ALPHONSO [facility] [id number] Univers 15:30:00 15:30:00 SANDRA dalila [facility] 2020-06-22 2020-06-22 Outpatient R ALPHONSO [facility] [id number] Univers 15:45:00 16:38:04 SANDRA [facility] 2020-06-22 2020-06-22 Routine Alphonso [facility] 1.2.143.339 [id number] Univers 15:42:19 16:38:04 Sandra Rivero REGULATORY ADMINISTRATOR 350.1.13.10 i ty of Visit REGIONAL 4.2.7.2.686 Wei as MATERNAL [id number] [address] 2020-06-16 2020-06-16 Hospital Rosalio Chao [facility] 1.2.840.1 [id number] Univers 05:33:00 06:38:00 Encounter Prema Lerma [place] 350.1.13.10 ity [facility] 4.2.7.2.686 [facility] [id number] [address] 2020-06-16 2020-06-16 Outpatient P PREMA LERMA [facility] YOSI [id number] Univers 05:33:00 06:38:00 ity [facility] 2020-06-16 2020-06-16 Telephone Alphonso [facility] 1.2.840.114 [id number] Univers 00:00:00 00:00:00 Sandra Rivero REGULATORY ADMINISTRATOR 350.1.13.10 it y of [facility] 4.2.7.2.686 Wei as MATERNAL [id number] [facility] & CHILD [address] [place] [address] 2020-06-15 2020-06-15 Employee Relations Advisor Lab/Mahin Shaikh [facility] 1.2 .840.114 [id number] Univers 14:37:54 15:11:19 Visit Minerva Chairez REGULATORY ADMINISTRATOR 350.1.13.10 ity of [facility] 4.2.7.2.686 Wei as MATERNAL [id number] Med ical & CHILD [address] [place] [address] 2020-06-15 2020-06-15 Outpatient Arnold WERNER [facility] [id number] Univers 09:00:00 09:00:00 SANDRA still [facility] 2020-06-10 2020-06-10 Outpatient [facility] [id number] Univers 15:15:00 15:15:00 SANDRA still [facility] 2020-06-09 2020-06-[address] [facility] 1.2.840.114 [id number] Univers 00:00:00 00:00:00 Sandra Rivero REGULATORY ADMINISTRATOR 350.1.13.10 it y of [facility] 4.2.7.2.686 Wei as MATERNAL [id number] [facility] & CHILD [address] [place] [address] 2020-06-08 2020-06-[address] [facility] 1.2.178.657 [id number] Univers 15:41:00 16:20:28 Sandra Rivero REGULATORY ADMINISTRATOR 350.1.13.10 i ty of Visit [facility] 4.2.7.2.686 Wei as MATERNAL [id number] [facility] & [address] 2020-06-08 2020-06-08 Outpatient Arnold WERNER [facility] [id number] Univers 15:45:00 15:45:00 SANDRA still [facility] 2020-05-18 2020-05-18 Outpatient Arnold WERNER [facility] [id number] Univers 15:00:00 15:00:00 SANDRA [facility] 2020-05-11 2020-05-11 Employee Relations Advisor Ultrasound, [facility] 1.2 .840.114 [id number] Univers 07:55:26 08:25:26 Visit Cari Arias REGULATORY ADMINISTRATOR 350.1. 13.10 ity of [facility] 4.2.7.2.686 Wei as MATERNAL [id number] Med ical & CHILD [address] [facility] 2020-05-11 2020-05-11 [address] [facility] [id number] Univers 08:00:00 08:00:00 ity of [facility] 2020-05-04 2020-05-04 Routine Alphonso [facility] 1.2.404.789 [id number] Univers 15:13:43 15:33:17 Sandra Rivero REGULATORY ADMINISTRATOR 350.1.13.10 i ty of Visit REGIONAL 4.2.7.2.686 Wei as MATERNAL [id number] Med ical & CHILD [address] [place] [address] 2020-05-04 2020-05-04 Outpatient R ALPHONSO [facility] [id number] Univers 15:15:00 15:15:00 SANDRA itdalila of [facility] 2020-04-27 2020-04-[address] [facility] 1.2.840.114 [id number] Univers 00:00:00 00:00:00 Sandra Rivero REGULATORY ADMINISTRATOR 350.1.13.10 it y of REGIONAL 4.2.7.2.686 Wei as MATERNAL [id number] [facility] & CHILD [address] [place] [address] 2020-04-21 2020-04-21 Routine Dony [facility] 1.2.840.114 [id number] Univers 09:57:33 10:12:33 Roshunda R REGULATORY ADMINISTRATOR 350.1.13.10 ity of Visit REGIONAL 4.2.7.2.686 Wei as MATERNAL [id number] [facility] & CHILD [address] [place] [address] 2020-04-21 2020-04-21 Outpatient R DONY [facility] [id number] Univers 09:45:00 09:45:00 ROSHUNDA ity o f [facility] 2020-04-06 2020-04-[address] [facility] 1.2.840.114 [id number] Univers 12:49:05 13:44:33 Roshunda R REGULATORY ADMINISTRATOR 350.1.13.10 ity of Visit REGIONAL 4.2.7.2.686 Wei as MATERNAL [id number] [facility] ical & CHILD [address] [place] [address] 2020-04-06 2020-04-06 Outpatient R DONY [facility] [id number] Univers 12:45:00 12:45:00 TIM still o f [facility] 2020-04-06 2020-04-06 Outpatient [facility] [id number] Univers 08:15:00 08:15:00 SANDRA still [facility] 2020-04-02 2020-04-02 Employee Relations Advisor Lab, Ang-Rmchp [facility] 1.2.840. 114 [id number] Univers 07:57:28 08:15:55 Visit Sandra Werner REGULATORY ADMINISTRATOR 350.1.13.10 ity of REGIONAL 4.2.7.2.686 Wei as MATERNAL [id number] [facility] ical & CHILD [address] [place] [address] 2020-04-02 2020-04-02 Out[facility] [id number] Univers 08:15:00 08:15:00 SANDRA still [facility] 2020-03-29 2020-03-29 Outpatient R [facility] [id number] Univers 08:15:00 08:15:00 [facility] 2020-03-23 2020-03-[address] [facility] 1.2.687.872 [id number] Univers 14:04:13 14:23:51 Sandra Rivero REGULATORY ADMINISTRATOR 350.1.13.10 i ty of Visit REGIONAL 4.2.7.2.686 Wei as MATERNAL [id number] [facility] & [address] 2020-03-23 2020-03-23 Outpatient R ALPHONSO [facility] [id number] Univers 14:15:00 14:15:00 SANDRAERAN still [facility] 2020-02-23 2020-02-23 Outpatient R NILTON CHEN [facility] [id number] Univers 14:30:00 14:30:00 [facility] 2020-02-17 2020-02-[address] [facility] 1.2.496.414 [id number] Univers 13:00:49 13:44:38 Sandra Rivero REGULATORY ADMINISTRATOR 350.1.13.10 i ty of Visit REGIONAL 4.2.7.2.686 Wei as MATERNAL [id number] [facility] ical & CHILD [address] [place] [address] 2020-02-17 2020-02-17 Outpatient R ALPHONSO [facility] [id number] Univers 13:00:00 13:00:00 SANDRA still [facility] 2020-02-17 2020-02-17 Employee Relations Advisor Ultrasound, Krysten [facility] 1.2 .840.114 [id number] Univers 10:05:54 11:18:45 Visit Cari Arias REGULATORY ADMINISTRATOR 350.1. 13.10 ity of [facility] [id number] Wei as MATERNAL [phone] Med ical & CHILD [address] [facility] [place] 2020-02-17 2020-02-[address] [facility] [id number] Univers 00:00:00 00:00:00 Sandra Josefa REGULATORY ADMINISTRATOR [id number] it y of [facility] [id number] Wei as MATERNAL [id number] Med ical & CHILD 107 [facility] [place] 2020-01-22 2020-01-[address] [facility] [id number] Univers 08:06:22 08:34:21 Sandra Josefa REGULATORY ADMINISTRATOR [id number] i ty of Visit REGIONAL [id number] Wei as MATERNAL [id number] Med ical & CHILD [address] [place] [address] 2020-01-22 2020-01-22 Outpatient Arnold WERNER [facility] [id number] Univers 08:15:00 08:15:00 SANDRA still [facility] 2020-01-20 2020-01-20 Outpatient R ALPHONSO [facility] [id number] Univers 08:45:00 08:45:00 SANDRA still [facility] 2020-01-12 2020-01-[address] [facility] [id number] Univers 00:00:00 00:00:00 Sandra Josefa REGULATORY ADMINISTRATOR [id number] it y of [facility] [id number] Wei as MATERNAL [id number] Med ical & CHILD [address] [place] [address] 2019-12-23 2019-12-[address] [facility] [id number] Univers 09:51:42 10:14:25 Sandra Rivero REGULATORY ADMINISTRATOR [id number] i ty of Visit REGIONAL [id number] Wei as MATERNAL [id number] [facility] & [address] 2019-12-23 2019-12-23 Outpatient Arnold [facility] [id number] Univers 10:00:00 10:00:00 SANDRA [facility] 2019-11-24 2019-11-24 [facility] [id number] [facility] 08:33:44 09:47:27 Sandra Rivero REGULATORY ADMINISTRATOR [id number] i ty of Visit [facility] [id number] Wei as MATERNAL [id number] [address] 2019-11-24 2019-11-24 [facility] [id number] Univers 08:30:00 08:30:00 [facility] Results Test Description Test Time Test Comments Results Result Comments Source HIV 1/2 AG-AB WITH REFLEX 2022-12-01 05:59:16 Test Item Value Reference Range Interpretation Comme nts HIV Semi-quantitative (test code = 0.08 Negative 64062-4) BLAIR (test code = BLAIR) Non-reactive for HIV-1 antigen and HIV-1/HIV-2 antibodies. ?No laboratory evidence of HIV infection. ?Repeat in 2-4 weeks if acute HIV infection is suspected. [facility] [id number] 05:19:32 Test Item Value Reference Range Interpretation Comments GLUC 1 HR (test code = 6294548620) 106 mg/dL 120-170 L Lab Interpretation (test code = Abnormal 08533-8) [facility] with [id number] 04:50:24 Test Item Value Reference Range Interpretation Comments WBC (test code = 6.16 See_Comment [Automated 2371-2) message] The sy stem which generated this result transmitted reference range : 4.30 - 11.10 10*3/?L. The reference range was not used to interpret this result as normal/abnormal . RBC (test code = 4.03 See_Comment [Automated 789-8) message] The sy stem which generated this result transmitted reference range : 3.93 - 5.25 10*6/?L. The reference range was not used to interpret this result as normal/abnormal . HGB (test code = 12.1 g/dL 11.6-15.0 718-7) HCT (test code = 36.9 % 35.7-45.2 4544-3) MCV (test code = 91.6 fL 80.6-95.5 787-2) MCH (test code = 30.0 pg 25.9-32.8 785-6) MCHC (test code = 32.8 g/dL 31.6-35.1 786-4) RDW-SD (test code = 41.6 fL 39.0-49.9 04766-8) RDW-CV (test code = 12.5 % 12.0-15.5 788-0) PLT (test code = 317 See_Comment [Automated 777-3) message] The sy stem which generated this result transmitted reference range : 166 - 358 10*3/ ?L. The reference r vanessa was not used to interpret this result as normal/abnormal . MPV (test code = 10.7 fL 9.5-12.9 97322-0) NRBC/100 WBC (test 0.0 See_Comment [Automat ed code = 3417463007) message] The system which generated this result transmitted reference range : 0.0 - 10.0 /100 WBCs. The refer ence range was not u sed to interpret th is result as normal/abnormal . NRBC x10^3 (test code See_Comment [Auto mated = [id number]) message] The s ystem which generated this result transmitted reference range : 10*3/?L. The reference range was not used to interpret this result as normal/abnormal . GRAN MAT (NEUT) % 72.3 % (test code = 770-8) IMM GRAN % (test code 0.30 % = 1895417520) LYMPH % (test code = 20.8 % 736-9) MONO % (test code = 5.5 % 5905-5) EOS % (test code = 0.8 % 713-8) BASO % (test code = 0.3 % 706-2) GRAN MAT x10^3(ANC) 4.45 10*3/uL 1.88-7.09 (test code = 2126370299) IMM GRAN x10^3 (test 0.00-0.06 code = 7057065958) LYMPH x10^3 (test code 1.28 10*3/uL 1.32-3.29 L = 731-0) MONO x10^3 (test code 0.34 10*3/uL 0.33-0.92 = 742-7) EOS x10^3 (test code = 0.05 10*3/uL 0.03-0.39 711-2) BASO x10^3 (test code 0.01-0.07 = 704-7) Lab Interpretation Abnormal (test code = 20829-6) [facility] URINALYSIS W SPECIFIC [id number] 14:09:00 Test Item Value Reference Range Interpretation Comments POCT U SP GRAV (test code = 3255) . 1.005-1.025 POCT PH U (test code = 3254) 7 mg/dl 5-8 POCT U LEUK EST (test code = 2+ Negative - Negative 3263) POCT U NIT (test code = 3262) Neg Negative - Negative POCT U PROT (test code = 3259) Trace Negative - Negative POCT U GLU (test code = 3256) Neg Negative - Negative POCT U KETONE (test code = 3258) None Negative - Negative POCT U UROBILI (test code = 3260) . 0.2-1 POCT U BILI (test code = 3261) . Negative - Negative POCT U BLD (test code = 3257) Trace Negative - Negative POCT U COLOR (test code = 3266) . POCT U APPEAR (test code = 3267) [facility] URINALYSIS W SPECIFIC [id number] 14:09:00 Test Item Value Reference Range Interpretation Comments POCT U SP GRAV (test code = 3255) . 1.005-1.025 POCT PH U (test code = 3254) 7 mg/dl 5-8 POCT U LEUK EST (test code = 2+ Negative - Negative 3263) POCT U NIT (test code = 3262) Neg Negative - Negative POCT U PROT (test code = 3259) Trace Negative - Negative POCT U GLU (test code = 3256) Neg Negative - Negative POCT U KETONE (test code = 3258) None Negative - Negative POCT U UROBILI (test code = 3260) . 0.2-1 POCT U BILI (test code = 3261) . Negative - Negative POCT U BLD (test code = 3257) Trace Negative - Negative POCT U COLOR (test code = 3266) . POCT U APPEAR (test code = 3267) [facility] URINALYSIS W SPECIFIC [id number] 14:09:00 Test Item Value Reference Range Interpretation Comments POCT U SP GRAV (test code = 3255) . 1.005-1.025 POCT PH U (test code = 3254) 7 mg/dl 5-8 POCT U LEUK EST (test code = 2+ Negative - Negative 3263) POCT U NIT (test code = 3262) Neg Negative - Negative POCT U PROT (test code = 3259) Trace Negative - Negative POCT U GLU (test code = 3256) Neg Negative - Negative POCT U KETONE (test code = 3258) None Negative - Negative POCT U UROBILI (test code = 3260) . 0.2-1 POCT U BILI (test code = 3261) . Negative - Negative POCT U BLD (test code = 3257) Trace Negative - Negative POCT U COLOR (test code = 3266) . POCT U APPEAR (test code = 3267) [facility] URINALYSIS W SPECIFIC [id number] 15:31:00 Test Item Value Reference Range Interpretation Comments POCT U SP GRAV (test code = 3255) . 1.005-1.025 POCT PH U (test code = 3254) 6 mg/dl 5-8 POCT U LEUK EST (test code = Trace Negative - Negative 3263) POCT U NIT (test code = 3262) Neg Negative - Negative POCT U PROT (test code = 3259) Trace Negative - Negative POCT U GLU (test code = 3256) Neg Negative - Negative POCT U KETONE (test code = 3258) None Negative - Negative POCT U UROBILI (test code = 3260) . 0.2-1 POCT U BILI (test code = 3261) . Negative - Negative POCT U BLD (test code = 3257) Trace Negative - Negative POCT U COLOR (test code = 3266) POCT U APPEAR (test code = 3267) [facility] SPECIFIC [id number] 15:50:00 Test Item Value Reference Range Interpretation Comments POCT U SP GRAV (test code = 3255) . 1.005-1.025 POCT PH U (test code = 3254) 6 mg/dl 5-8 POCT U LEUK EST (test code = 2+ Negative - Negative 3263) POCT U NIT (test code = 3262) Neg Negative - Negative POCT U PROT (test code = 3259) Trace Negative - Negative POCT U GLU (test code = 3256) Neg Negative - Negative POCT U KETONE (test code = 3258) None Negative - Negative POCT U UROBILI (test code = 3260) . 0.2-1 POCT U BILI (test code = 3261) . Negative - Negative POCT U BLD (test code = 3257) Trace Negative - Negative POCT U COLOR (test code = 3266) . POCT U APPEAR (test code = 3267) [facility] [id number] 20:13:27 Test Item Value Reference Interpretation Comments Range RACE (test code = 8121428549) WEIGHT (test code = 213.5 lbs 8069497971) GEST. AGE (test 16,0 code = 7879153959) INS. DEP (test code No = 8619736457) LMP (test code = 20220504 7055379058) US DATE (test code = 7217565338) PE DATE (test code = 2012574938) METHOD (test code = LMP 4158522895) MULT GEST (test No code = 2422700438) NTD HX (test code = No 2009720300) INITAL OR REPEAT Initial (test code = Testing 1445352987) SMOKER (test code = No 3732581833) RH (test code = 3224520599) INHIBIN (test code 58.5 pg/mL = 7079624363) AFP-MS (test code = 15.9 ng/mL 3122644314) ESTRIOL (test code 1.02 ng/mL = 3598147072) BHCG DOWNS (test 22381.0 mIU/mL code = 1741627087) AFP-MS MoM (test 0.64 code = 0069144496) BHCG MoM (test code 0.53 = 7147147591) INHIBIN MoM (test 0.39 code = 6397644229) E3 MoM (test code = 1.23 4787423833) EQ AGE RSK (test < 15.0 less than t hat of a 15.0 code = 0868930919) year old DS APR (test code = 1:1010 1817939669) DS INTERP (test See Note The risk of Down code = 2804156282) syndrome is LESS than the screening c ut-off. Nofollow-up is indicated regarding this result. DS RSK (test code = ~ 1:76424 The risk at 0288508134) mid-trimester i s approximately 1 :38831 DS SCRN (test code Negative = 2819654425) TRISOMY 18 (test See Note These serum marker code = 9328597696) levels ar e not consistent with the pattern seen in Trisomy 18 pregnancies. Maternal serum screening will detectapproxima tely 60% of Trisomy 18 pregnancies. ES RSK (test code = 1:41441 The risk of Trisomy 18 2714031457) is equal to 1:1 8000The Trisomy 18 cut- off is 1:45 ES SCRN (test code Negative = 4937721723) OSB INTERP (test See Note The materna l serum AFP code = 5222243460) result is NOT elevated for a of thisgestational age. The risk of an open neural tube defect is less thanthe screeni ng cut-off. OSB RSK (test code 1:67857 The risk of OSB is equal = 3448447977) to 1:28062Wkp OSB cut-off is 2.56 (1:104) OSB SCRN (test code Negative = 2632387824) INTERPRETATION N INTERPRETATIO N: SCREEN (test code = NEGATIVE 9771148291) [facility] [id number] 20:13:27 Test Item Value Reference Interpretation Comments Range RACE (test code = 8123511427) WEIGHT (test code = 213.5 lbs 5349526223) GEST. AGE (test 16,0 code = 3637499337) INS. DEP (test code No = 3226034091) LMP (test code = 20220504 7995035181) US DATE (test code = 8703973036) PE DATE (test code = 2321808602) METHOD (test code = LMP 8285117596) MULT GEST (test No code = 5346733296) NTD HX (test code = No 1170091740) INITAL OR REPEAT Initial (test code = Testing 7838760407) SMOKER (test code = No 3322124066) RH (test code = 8341695583) INHIBIN (test code 58.5 pg/mL = 8802876226) AFP-MS (test code = 15.9 ng/mL 6377447571) ESTRIOL (test code 1.02 ng/mL = 3459865780) BHCG DOWNS (test 70150.0 mIU/mL code = 9554531004) AFP-MS MoM (test 0.64 code = 1131091226) BHCG MoM (test code 0.53 = 8368785338) INHIBIN MoM (test 0.39 code = 9537282253) E3 MoM (test code = 1.23 4721117698) EQ AGE RSK (test < 15.0 less than t hat of a 15.0 code = 2223784176) year old DS APR (test code = 1:1010 2337421316) DS INTERP (test See Note The risk of Down code = 4456954654) syndrome is LESS than the screening c ut-off. Nofollow-up is indicated regarding this result. DS RSK (test code = ~ 1:40750 The risk at 0548524436) mid-trimester i s approximately 1 :69509 DS SCRN (test code Negative = 6072329409) TRISOMY 18 (test See Note These serum marker code = 9730867533) levels ar e not consistent with the pattern seen in Trisomy 18 pregnancies. Maternal serum screening will detectapproxima tely 60% of Trisomy 18 pregnancies. ES RSK (test code = 1:60579 The risk of Trisomy 18 6435549662) is equal to 1:1 8000The Trisomy 18 cut- off is 1:45 ES SCRN (test code Negative = 9373959727) OSB INTERP (test See Note The materna l serum AFP code = 1157395666) result is NOT elevated for a of thisgestational age. The risk of an open neural tube defect is less thanthe screeni ng cut-off. OSB RSK (test code 1:18174 The risk of OSB is equal = 9546072028) to 1:66507Fcc OSB cut-off is 2.56 (1:104) OSB SCRN (test code Negative = 7027990821) INTERPRETATION N INTERPRETATIO N: SCREEN (test code = NEGATIVE 6609318257) [facility] URINALYSIS W SPECIFIC [id number] 13:58:00 Test Item Value Reference Range Interpretation Comments POCT U SP GRAV (test code = 3255) . 1.005-1.025 POCT PH U (test code = 3254) . 5-8 POCT U LEUK EST (test code = 3263) . Negative - Negative POCT U NIT (test code = 3262) . Negative - Negative POCT U PROT (test code = 3259) TRACE Negative - Negative POCT U GLU (test code = 3256) NEG Negative - Negative POCT U KETONE (test code = 3258) . Negative - Negative POCT U UROBILI (test code = 3260) . 0.2-1 POCT U BILI (test code = 3261) . Negative - Negative POCT U BLD (test code = 3257) . Negative - Negative POCT U COLOR (test code = 3266) . POCT U APPEAR (test code = 3267) . [facility] URINALYSIS W SPECIFIC [id number] 13:58:00 Test Item Value Reference Range Interpretation Comments POCT U SP GRAV (test code = 3255) . 1.005-1.025 POCT PH U (test code = 3254) . 5-8 POCT U LEUK EST (test code = 3263) . Negative - Negative POCT U NIT (test code = 3262) . Negative - Negative POCT U PROT (test code = 3259) TRACE Negative - Negative POCT U GLU (test code = 3256) NEG Negative - Negative POCT U KETONE (test code = 3258) . Negative - Negative POCT U UROBILI (test code = 3260) . 0.2-1 POCT U BILI (test code = 3261) . Negative - Negative POCT U BLD (test code = 3257) . Negative - Negative POCT U COLOR (test code = 3266) . POCT U APPEAR (test code = 3267) . [facility] URINALYSIS W SPECIFIC [id number] 13:58:00 Test Item Value Reference Range Interpretation Comments POCT U SP GRAV (test code = 3255) . 1.005-1.025 POCT PH U (test code = 3254) . 5-8 POCT U LEUK EST (test code = 3263) . Negative - Negative POCT U NIT (test code = 3262) . Negative - Negative POCT U PROT (test code = 3259) TRACE Negative - Negative POCT U GLU (test code = 3256) NEG Negative - Negative POCT U KETONE (test code = 3258) . Negative - Negative POCT U UROBILI (test code = 3260) . 0.2-1 POCT U BILI (test code = 3261) . Negative - Negative POCT U BLD (test code = 3257) . Negative - Negative POCT U COLOR (test code = 3266) . POCT U APPEAR (test code = 3267) . [facility] URINALYSIS W SPECIFIC [id number] 13:58:00 Test Item Value Reference Range Interpretation Comments POCT U SP GRAV (test code = 3255) . 1.005-1.025 POCT PH U (test code = 3254) . 5-8 POCT U LEUK EST (test code = 3263) . Negative - Negative POCT U NIT (test code = 3262) . Negative - Negative POCT U PROT (test code = 3259) TRACE Negative - Negative POCT U GLU (test code = 3256) NEG Negative - Negative POCT U KETONE (test code = 3258) . Negative - Negative POCT U UROBILI (test code = 3260) . 0.2-1 POCT U BILI (test code = 3261) . Negative - Negative POCT U BLD (test code = 3257) . Negative - Negative POCT U COLOR (test code = 3266) . POCT U APPEAR (test code = 3267) . [facility] URINALYSIS W/O SPECIFIC [id number] 21:42:00 Test Item Value Reference Range Interpretation Comments POCT PH U (test code = 3254) 6 mg/dl 5-8 POCT U LEUK EST (test code = neg Negative - Negative 3263) POCT U NIT (test code = 3262) neg Negative - Negative POCT U PROT (test code = 3259) trace Negative - Negative POCT U GLU (test code = 3256) neg Negative - Negative POCT U KETONE (test code = 3258) neg Negative - Negative POCT U BLD (test code = 3257) neg Negative - Negative [facility] [id number] 21:42:00 Test Item Value Reference Range Interpretation Comments POCT PH U (test code = 3254) 6 mg/dl 5-8 POCT U LEUK EST (test code = neg Negative - Negative 3263) POCT U NIT (test code = 3262) neg Negative - Negative POCT U PROT (test code = 3259) trace Negative - Negative POCT U GLU (test code = 3256) neg Negative - Negative POCT U KETONE (test code = 3258) neg Negative - Negative POCT U BLD (test code = 3257) neg Negative - Negative [facility] [id number] 21:39:00 Test Item Value Reference Range Interpretation Comments POCT PREG (test code = 1605) Positive On board controls acceptable with C Yes Line (test code = 3574) POCT PREG LOT # (test code = 3575) POCT PREG TEST DATE (test code = 3576) [facility] [id number] 21:39:00 Test Item Value Reference Range Interpretation Comments POCT PREG (test code = 1605) Positive On board controls acceptable with C Yes Line (test code = 3574) POCT PREG LOT # (test code = 3575) POCT PREG TEST DATE (test code = 3576) [facility] [id number] 15:43:00 Test Item Value Reference Range Interpretation Comments POCT PREG (test code = 1605) Negative On board controls acceptable with C Yes Line (test code = 3574) POCT PREG LOT # (test code = 3575) POCT PREG TEST DATE (test code = 3576) [facility] [id number] 15:43:00 Test Item Value Reference Range Interpretation Comments POCT PREG (test code = 1605) Negative On board controls acceptable with C Yes Line (test code = 3574) POCT PREG LOT # (test code = 3575) POCT PREG TEST DATE (test code = 3576) [facility]2017-04-11 17:02:00 Test Item Value Reference Range Interpretation Comments Immunology (test code = RPR) NONREACTIVE NONREACTIVE N Chemistry - [id number] 06:38:00 Test Item Value Reference Range Interpretation Comments Chemistry - Specials (test Non-Reactive S/CO NonReactive N code = THBSAG) Blood Type Rh (Mom No Chg)2016-09-12 06:28:00 Test Item Value Reference Range Interpretation Comments Blood Type Rh OP N (test code = BT) Comment: (test See comment: N Maternal Type Rh code = TRHCMT) required for cord blood study. Due fabio byrd of a historical bloo d type, [facility] [id number] 06:08:00 Test Item Value Reference Range Interpretation [...]
--- NOTE | 2022-12-05 18:06 | RAD REPORT ---
EXAM DESCRIPTION: RAD - Tib Fib Right - 12/05/2022 5:50 pm CLINICAL HISTORY: fall COMPARISON: Tib Fib Left dated 12/05/2022 TECHNIQUE: Right tibia and fibula, 2 views. FINDINGS: No fracture is identified. There is no dislocation or periosteal reaction noted. No acute or suspicious bony finding. No foreign body or other soft tissue abnormality. IMPRESSION: Negative right tibia & fibula examination.
--- NOTE | 2022-12-05 18:06 | RAD REPORT ---
EXAM DESCRIPTION: RAD - Tib Fib Left - 12/05/2022 5:50 pm CLINICAL HISTORY: fall COMPARISON: No comparisons TECHNIQUE: Left tibia and fibula, 2 views. FINDINGS: No fracture is identified. There is no dislocation or periosteal reaction noted. No foreign body or other soft tissue abnormalit y. IMPRESSION: No acute osseous abnormality of the left tibia fibula.
--- NOTE | 2022-12-05 18:29 | ER ---
Nurse's Notes [facility] Name: Penny Constantino Age: 26 yrs Sex: Female : 1995 Arrival Date: 12/05/2022 Time: 16:49 Bed 2 Private MD: Diagnosis: Fall (on) (from) other stairs and steps;Contusion of right lower leg;Contusion of left lower leg;Abrasion, left lower leg;Abrasion, right lower leg Presentation: 12/05 17:02 Chief complaint: Patient states: Fall yesterday, fell on left side, complaining of chantal nj1 ankle pain. Able to ambulate. 7 months , denies vaginal bleeding/abdominal cramping. Wants to make sure baby is ok, states she has felt baby move. Coronavirus screen: Vaccine status: Patient reports being unvaccinated. Ebola Screen: Patient denies travel to an Ebola-affected area in the 21 days before illness onset. Initial Sepsis Screen: Does the patient meet any 2 criteria? No. Patient's initial sepsis screen is negative. Does the patient have a suspected source of infection? No. Patient's initial sepsis screen is negative. Risk Assessment: Do you want to hurt yourself or someone else? Patient reports no desire to harm self or others. Onset of symptoms was December 04, 2022. 17:02 Method Of Arrival: Ambulatory [facility] 17:02 Acuity: PIPPA 3 nj1 STAFF PSYCHOLOGIST: 17:05 3, Full Term 2, LMP 05/04/2022, Verified, EDC 02/08/2023, Gestational nj1 age from LMP: 30 weeks 5 days Historical: - Allergies: 17:04 No Known Allergies; nj1 - PMHx: 17:04 None; nj1 - PSHx: 17:04 None; nj1 - Immunization history:: Client reports having NOT received the Covid vaccine. - Social history:: Smoking status: Patient denies any tobacco usage or history of. Screenin:39 [facility] ED Fall Risk Assessment (Adult) History of falling in the last 3 months, vg1 including since admission Yes- single mechanical fall (1 pt) Confusion or Disorientation No (0 pts) Intoxicated or Sedated No (0 pts) Impaired Gait No (0 pts) Mobility Assist Device Used No (0 pt) Altered Elimination No (0 pt) Score/Fall Risk Level 0 - 2 = Low Risk Oriented to surroundings, Maintained a safe environment, Educated pt \T\ family on fall prevention, incl call for assistance when getting out of bed. Abuse screen: Denies threats or abuse. Denies injuries from another. Nutritional screening: No deficits noted. Tuberculosis screening: No symptoms or risk factors identified. Assessment: 17:37 General: Appears in no apparent distress. comfortable, Behavior is calm, cooperative. vg1 Pain: Complains of pain in Right and Left ankle Pain began 1 day ago. Aggravated by weight bearing. Neuro: Level of Consciousness is awake, alert, obeys commands, Oriented to person, place, time, situation. Cardiovascular: Patient's skin is warm and dry. Pulses are palpable in right dorsalis pedis artery and left dorsalis pedis artery. Derm: appears to have an abrasion to Left armas. Musculoskeletal: Circulation, motion, and sensation intact. Vital Signs: 17:02 BP 122 / 65; Pulse 75; Resp 18; Temp 99.3; Pulse Ox 100% ; Weight 99.34 kg; Height 5 nj1 ft. 9 in. ; Pain 5/10; 17:40 BP 117 / 67; Pulse 62; Resp 16; Pulse Ox 99% on R/A; vg1 17:02 Body Mass Index 32.34 (99.34 kg, 175.26 cm) nj1 17:02 Pain Scale: Adult nj1 Vitals: 17:23 Heart Tones 143 bpm. jl7 ED Course: 16:52 Patient arrived in ED. ts1 16:57 Benitez Mcqueen DO is Attending Physician. ms3 17:04 Triage completed. nj1 17:05 Arm band placed on left wrist. nj1 17:07 Jocelin Balderrama, RN is Primary Nurse. vg1 17:39 Patient has correct armband on for positive identification. Bed in low position. Call vg1 light in reach. Side rails up X2. 17:39 No provider procedures requiring assistance completed. Patient did not have IV access vg1 during this emergency room visit. 17:52 Tib Fib Left XRAY In Process Unspecified. EDMS 17:52 Tib Fib Right XRAY In Process Unspecified. EDMS 18:16 Attending Physician role handed off by Benitez Mcqueen DO ms3 18:16 Rohan Cortes MD is Attending Physician. ms3 Administered Medications: No medications were administered Medication: 17:37 VIS not applicable for this client. vg1 Outcome: 18:28 Discharge ordered by MD. rt 18:45 Discharged to home ambulatory. vg1 18:45 Condition: good 18:45 Discharge instructions given to patient, Instructed on discharge instructions, follow up and referral plans. Demonstrated understanding of instructions, follow-up care. 18:45 Patient left the ED. vg1 Signatures: Dispatcher [employer] EDMichael Nelson RN RN jl7 Jocelin Balderrama RN RN vg1 Benitez Mcqueen DO DO ms3 Rohan Cortes MD MD rt Tania Silvestre RN RN nj1 Teodora Huff, PAS PAS ts1
--- NOTE | 2022-12-05 18:29 | EDPHYS ---
Physician Documentation [facility] Name: Penny Constantino Age: 26 yrs Sex: Female : 1995 Arrival Date: 12/05/2022 Time: 16:49 Bed 2 Private MD: ED Physician Rohan Cortes HPI: 12/05 17:14 This 26 yrs old Female presents to ER via Ambulatory with complaints of Fall ms3 Injury, 7 MONTHS . 17:14 26-year-old female with no past medical history presents for falling down 1 step last ms3 night at 8 PM. Patient states her pain is a 5/10 located on the anterior armas left greater than right. Patient denies abdominal pain, vaginal bleeding, loss of fluid. Patient states she does feel movement at this time. Patient states her pain is worse when walking. Patient denies alleviating factors. [facility]: 17:05 3, Full Term 2, LMP 05/04/2022, Verified, EDC 02/08/2023, Gestational nj1 age from LMP: 30 weeks 5 days Historical: - Allergies: 17:04 No Known Allergies; nj1 - PMHx: 17:04 None; nj1 - PSHx: 17:04 None; nj1 - Immunization history:: Client reports having NOT received the Covid vaccine. - Social history:: Smoking status: Patient denies any tobacco usage or history of. ROS: 18:14 Constitutional: Negative for fever, and chills. Neck: Negative for injury, pain, and ms3 swelling, Cardiovascular: Negative for chest pain, and palpitations. Respiratory: Negative for shortness of breath, cough, wheezing, and pleuritic chest pain, Abdomen/GI: Negative for abdominal pain, nausea, vomiting, diarrhea, and constipation, MS/Extremity: Negative for injury and deformity. 18:14 Skin: Positive for abrasion(s), ecchymosis. 18:14 All other systems are negative. Exam: 18:14 Constitutional: This is a well developed, well nourished patient who is awake, alert, ms3 and in no acute distress. ENT: Nares patent. No nasal discharge, no septal abnormalities noted. Tympanic membranes are normal and external auditory canals are clear. Oropharynx with no redness, swelling, or masses, exudates, or evidence of obstruction, uvula midline. Mucous membranes moist. Neck: Trachea midline, no cervical lymphadenopathy. Supple, full range of motion without nuchal rigidity, or vertebral point tenderness. No Meningismus. Chest/axilla: Normal chest wall appearance and motion. Nontender with no deformity. Cardiovascular: Regular rate and rhythm with a normal S1 and S2. No gallops, murmurs, or rubs. Normal PMI, no JVD. No pulse deficits. Respiratory: Lungs have equal breath sounds bilaterally, clear to auscultation and percussion. No rales, rhonchi or wheezes noted. No increased work of breathing, no retractions or nasal flaring. Abdomen/GI: Soft, non-tender, with normal bowel sounds. No distension or tympany. No guarding or rebound. No evidence of tenderness throughout. 18:14 Musculoskeletal/extremity: No tenderness bilateral ankles. 18:14 Skin: injury, abrasion(s), small abrasion noted, of the Left and right armas. Vital Signs: 17:02 BP 122 / 65; Pulse 75; Resp 18; Temp 99.3; Pulse Ox 100% ; Weight 99.34 kg; Height 5 nj1 ft. 9 in. ; Pain 5/10; 17:40 BP 117 / 67; Pulse 62; Resp 16; Pulse Ox 99% on R/A; vg1 17:02 Body Mass Index 32.34 (99.34 kg, 175.26 cm) nj1 17:02 Pain Scale: Adult nj1 MDM: 17:14 Patient medically screened. ms3 18:14 Differential diagnosis: abrasion, contusion, sprain, strain. ms3 18:16 Transition of care: After a detail discussion of the patient's case, care is ms3 transferred to Rohan Cortes MD. 18:29 Data reviewed: vital signs, nurses notes, radiologic studies. Counseling: I had a rt detailed discussion with the patient and/or guardian regarding: the historical points, exam findings, and any diagnostic results supporting the discharge/admit diagnosis, radiology results, the need for outpatient follow up. 20:51 Independent interpretation of the following test(s) in the Emergency Department X-Ray: rt My interpretation is No fracture seen on interpretation of the x-ray images. ED course: X-rays are normal, FHTs are reassuring, reevaluated patient at shift change to give the results as well. She is very well-appearing, discussed wound care with the patient as well as conservative home care. Patient to follow-up with [facility] as an outpatient.. 12/05 16:58 Order name: Tib Fib Left XRAY; Complete Time: 18:08 [facility] 12/05 16:58 Order name: Tib Fib Right XRAY; Complete Time: 18:08 [facility] 12/05 17:23 Order name: FHT's; Complete Time: 17:23 jl7 Administered Medications: No medications were administered Disposition Summary: 12/05/22 18:28 Discharge Ordered Location: Home rt Condition: Stable rt Diagnosis - Fall (on) (from) other stairs and steps rt - Contusion of right lower leg rt - Contusion of left lower leg rt - Abrasion, left lower leg rt - Abrasion, right lower leg rt Followup: ms3 - With: Private Physician - When: 2 - 3 days - Reason: Recheck today's complaints Discharge Instructions: - Discharge Summary Sheet ms3 - Contusion, Cali-ca-Huyu ms3 - Abrasion, [id number] ms3 Forms: - Medication Reconciliation Form rt - Thank You Letter rt - Antibiotic Education rt - Prescription Opioid Use rt - [email or web address] rt Signatures: Dispatcher [employer] Michael Estrada, KIRK RN [id number] Benitez Mcqueen DO DO ms3 Rohan Cortes MD MD rt Tania Silvestre RN RN nj1
[2022-12-05 19:20] VITALS: TEMP 99.3
[2022-12-05 19:21] VITALS: BP 117/67; O2SAT 99
== END 2022-12-05 18:45 | disposition home or self-care (01) ==
LOC: ER 16:49
DX: O9A.213 Injury, poisoning and certain other consequences of external causes complicating pregnancy, third trimester (principal); Z3A.28 28 weeks gestation of pregnancy; S80.812A Abrasion, left lower leg, initial encounter; S80.811A Abrasion, right lower leg, initial encounter; S80.12XA Contusion of left lower leg, initial encounter; S80.11XA Contusion of right lower leg, initial encounter; W10.8XXA Fall (on) (from) other stairs and steps, initial encounter
CPT/HCPCS: 99283